=== PATIENT | female | born 1990 | race Caucasian/White ===

== ENCOUNTER 2020-10-27 22:36 | Inpatient (IN) | payer SELFPAY ==
--- NOTE | ~2020-10-27 | US_ITS ---
EXAMINATION: US OB <=14 wk fetus w TV DATE: 10/28/2020 01:36 INDICATION: Bleeding with clots and cramping during first trimester TECHNIQUE: Real-time pelvic transabdominal and transvaginal ultrasound was performed. COMPARISON: None FINDINGS: The uterus measures 9.9 x 6.9 x 6.2 cm. An irregular shaped gestational sac is present in the lower uterine segment/endocervical canal. A yolk sac is identified. No definite pole is sangita ntified. The right ovary measures 3.7 x 2.7 x 1.6 cm. The left ovary measures 2.2 x 1.7 x 2.0 cm. The re is normal vascular flow in the ovaries. There is no free fluid in the pelvis. IMPRESSION: 1. Findings consistent with in progress. These findings and recommendations were communicate d to the ER by the [facility]iologist. Patient has completed surgery at the time of interpretation. Reviewed, dictated and finalized at location A. CTION PREVENTIONIST IMPRESSION: 1. Findings consistent with in progress. These findings and recommenda tions were communicated to the ER by the [facility]iologist. Patient has compl eted surgery at the time of interpretation.
[2020-10-27 22:40] VITALS: BP 100/53; PULSE 86; RESP 18; TEMP 37.1; O2SAT 100
--- NOTE | 2020-10-27 22:46 | ED.FEMALEGU ---
HPI - Female Genitourinary General Chief complaint: Vaginal Bleeding Stated complaint: vaginal bleeding, on menses Time Seen by Provider: 10/27/20 22:45 Source: patient and EMS Mode of arrival: EMS Limitations: no limitations History of Present Illness HPI Narrative: Patient is a 30-year-old female, , last in 2018 who presents for evaluation of heavy vaginal bleeding. Patient states she was due to start her period today, had some normal spotting this morning but then this evening over the past hour developed very heavy vaginal bleeding soaking through one tampon in over an hour and then soaking herself and bright red blood. Due to the amount of blood, patient called EMS and was noted to be slightly hypotensive at the time of their arrival. She is denying any pain. Patient denies history of heavy menses in the past. She is not on any anticoagulation, no history of thyroid disorders, she does report feeling slightly lightheaded and dizzy. Patient denies any trauma or recent sexual intercourse. She denies previous vaginal discharge or bleeding. Patient blood type is O- based on chart review. She states she does not believe she is . Related Data Allergies Allergy/AdvReac Type Severity Reaction Status Date / Time No Known Drug Allergies Allergy Unknown Unknown Verified 08/11/19 14:31 Review of Systems Review of Systems: Narrative: CONSTITUTIONAL: Denies fever, chills, or sweats. EYES: Denies visual changes, redness, or discharge. ENT: Denies rhinorrhea, congestion, sore throat, or otalgia. CARDIOVASCULAR: Denies chest pain, palpitations, or edema. RESPIRATORY: Denies cough or dyspnea. GASTROINTESTINAL: Denies abdominal pain, nausea, vomiting, or diarrhea. GENITOURINARY: Denies dysuria or hematuria. Reports heavy vaginal bleeding. SKIN: Denies rash or itching. MUSCULOSKELETAL: Denies back pain, joint pain, or myalgia. NEUROLOGIC: Denies headache, numbness, or weakness. [facility] Past Medical History Medical History (Updated 10/28/20 @ 01:59 by Miryam Betancourt MD) No pertinent past medical history Surgical History Surgical History (Updated 10/27/20 @ 23:04 by Miryam Betancourt MD) No pertinent past surgical history Social History Social History (Updated 10/27/20 @ 23:04 by Miryam Betancourt MD) Smoking status: Current every day smoker Tobacco type: cigarettes Alcohol intake: never Substance use: never Living arrangements: with family Gender identity (if verbalized by the patient): Female Exam Narrative: Exam Narrative: GENERAL: Awake, alert, conversant HEAD: Normocephalic, atraumatic. EYES: PERRLA and EOMI. ENT: Nares clear, no rhinorrhea or epistaxis. Mucous membranes moist. NECK: Supple. CHEST: No respiratory distress, breathing even and non labored HEART: Regular rate, sinus rhythm ABDOMEN:Non distended, non tender : Cervix is dilated to 4 cm. There is large blood clot present. No parts identified. Brisk bleeding approximately 20 mL evaluated from the internal vaginal canal. There appears to be placental tissue present. EXTREMITIES: Normal range of motion. No edema. SKIN: Warm, dry, no rash. NEURO:No focal deficits. Alert and oriented x3 Course Vital Signs Vital signs: Vital Signs Temperature 37.1 C 10/27/20 22:40 Pulse Rate 86 10/27/20 22:40 Respiratory Rate 18 10/27/20 22:40 Blood Pressure 100/53 L 10/27/20 22:40 Pulse Oximetry 100 10/27/20 22:40 Temperature 37.1 C 10/27/20 22:40 Pulse Rate 84 10/28/20 00:01 Respiratory Rate 17 10/28/20 00:01 Blood Pressure 98/82 L 10/28/20 00:47 Pulse Oximetry 100 10/28/20 00:47 MDM - Female Genitourinary MDM Narrative Medical decision making narrative: Patient is a 30-year-old who presented for evaluation of vaginal bleeding. At the time of assessment, ABCs are intact, patient is borderline hypotensive. No tachycardia. On exam, there is concern that the patient is with p
[2020-10-27 23:17] LABS: Basophils Percent Auto 0.4 % (0.2-1.2); Eosinophils Absolute Auto 0.2 K/mm3 (0-0.3); Hematocrit 32.9 % (37.0-47.0); Hemoglobin 11.1 g/dL (12.0-15.0); Immature Granulocyte Absolute 0.06 K/mm3 (0.00-0.031); Immature Granulocyte Percent A 0.6 % (0-0.5); Lymphocytes Absolute Auto 1.85 K/mm3 (0.9-3.2); Lymphocytes Percent Auto 18.7 % (18.3-44.2); Mean Corpuscular HGB Conc 33.7 g/dl (32-36); Mean Corpuscular Hemoglobin 32.1 pg (26-34); Mean Corpuscular Volume 95.1 fl (80-100); Mean Platelet Volume 9.5 fl (7.4-10.4); Monocytes Absolute Auto 0.6 K/mm3 (0.1-0.6); Monocytes Percent Auto 6.4 % (2.6-8.5); Neutrophils Absolute Auto 7.1 K/mm3 (1.3-6.7); Neutrophils Percent Auto 71.9 % (45.5-73.1); Platelet Count Result 214 k/mm3 (150-375); Red Blood Count 3.46 M/mm3 (4.2-5.4); White Blood Count 9.9 K/mm3 (4.5-10.0)
[2020-10-27] MEDS: SODIUM CHLORIDE 0.9% IV 1,000 ML 999 ML IV CONT (23:18)
[2020-10-27] MEDS: TRANEXAMIC ACID 1,000 MG/10 ML AMPUL 1000 MG IV PUSH (23:18)
[2020-10-27 23:30] LABS: Alanine Aminotransferase 14 U/L (4-35); Albumin Level 3.2 g/dL (3.5-5.1); Alkaline Phosphatase 48 U/L (38-126); Anion Gap 2 mmol/L (8-16); Aspartate Amino Transferase 17 U/L (14-36); Bilirubin,Total 0.2 mg/dL (0.2-1.3); Blood Urea Nitrogen 15 mg/dL (7-17); Calcium 8.7 mg/dL (8.4-10.2); Carbon Dioxide 28 mmol/L (22-30); Chloride 105 mmol/L (98-107); Estimated CRCL calculation 132 ml/min; Estimated Glomerular Filt Rate > 60; Glucose 76 mg/dL (65-105); Potassium 3.8 mmol/L (3.4-5.0); Sodium 135 mmol/L (137-145)
[2020-10-27 23:40] LABS: Prothrombin Time 13.8 Seconds (11.1-14.7)
[2020-10-28] VITALS (109 sets, daily range): BP systolic 69–108; BP diastolic 31–82; PULSE 59–109; RESP 12–20; TEMP 36.2–36.6; O2SAT 94–100
[2020-10-28 00:06] LABS: Add Urine Microscopic? YES; Appearance Urine Clear (Clear); Bilirubin Urine Negative (Negative); Blood Urine Negative (Negative); Color Urine Yellow (Yellow); Glucose Urine UA Negative (Negative); Ketones Urine Negative (Negative); Leukocyte Esterase Ur Negative LEU/UL (Negative); Mucus Urine Moderate /lpf; Nitrate Urine Negative (Negative); Protein Urine 2+ mg/dL (Negative); Specific Grav Ur 1.024 (1.001-1.035); Squamous Epithelial Cell Urine Few /hpf (Few); Urobilinogen Urine Negative mg/dL (<2.0)
[2020-10-28] MEDS: RHO(D) IMMUNE GLOBULIN 300 MCG SYRINGE IM (01:45)
[2020-10-28 02:11] LABS: Basophils Percent Auto 0.3 % (0.2-1.2); Eosinophils Absolute Auto 0.1 K/mm3 (0-0.3); Eosinophils Percent Auto 0.9 % (0-4.4); Hematocrit 28.2 % (37.0-47.0); Hemoglobin 9.6 g/dL (12.0-15.0); Immature Granulocyte Absolute 0.08 K/mm3 (0.00-0.031); Immature Granulocyte Percent A 0.7 % (0-0.5); Lymphocytes Absolute Auto 1.92 K/mm3 (0.9-3.2); Lymphocytes Percent Auto 16.4 % (18.3-44.2); Mean Corpuscular Hemoglobin 31.9 pg (26-34); Mean Corpuscular Volume 93.7 fl (80-100); Mean Platelet Volume 9.8 fl (7.4-10.4); Monocytes Absolute Auto 0.5 K/mm3 (0.1-0.6); Monocytes Percent Auto 4.5 % (2.6-8.5); Neutrophils Percent Auto 77.2 % (45.5-73.1); Platelet Count Result 221 k/mm3 (150-375); Red Blood Count 3.01 M/mm3 (4.2-5.4); Red Cell Distribution Width 12.1 % (11.5-14.5); White Blood Count 11.7 K/mm3 (4.5-10.0)
[2020-10-28] MEDS: LORazepam INJ (*CRX) 2 MG/ML VIAL 0.5 MG IV PUSH (02:33)
[2020-10-28] MEDS: miSOPROStol 100 MCG TABLET 800 MCG PO (03:36)
[2020-10-28] MEDS: SODIUM CHLORIDE 0.9% IV 1,000 ML 125 ML IV CONT (03:39)
--- NOTE | 2020-10-28 03:45 | PC.NURSE ---
[id number] Called to verify orders for cytotec PO. stated to give cytotec and gave orders for morphine PRN for pain. stated to call her if bleeding increases.
[2020-10-28] MEDS: ONDANSETRON INJ 4 MG/2 ML VIAL IV PUSH (04:04)
[2020-10-28 06:10] LABS: Hematocrit 25.1 % (37.0-47.0); Hemoglobin 8.4 g/dL (12.0-15.0); Mean Corpuscular HGB Conc 33.5 g/dl (32-36); Mean Corpuscular Hemoglobin 31.2 pg (26-34); Mean Corpuscular Volume 93.3 fl (80-100); Mean Platelet Volume 9.8 fl (7.4-10.4); Platelet Count Result 219 k/mm3 (150-375); Red Blood Count 2.69 M/mm3 (4.2-5.4); White Blood Count 8.6 K/mm3 (4.5-10.0)
--- NOTE | 2020-10-28 06:32 | PC.NURSE ---
[id number] Avitia to tell her pt was assisted to bathroom and started to feel dizzy/lightheaded. pt was helped back to bed. Made MD aware of recent vitals. MD stated orders for type and screen and CBC. MD coming in at this time to prepare for procedure.
--- NOTE | 2020-10-28 06:37 | PM.IMHP ---
H&P: HPI History of Present Illness Date/Time: 10/28/20 06:37 Chief Complaint: vaginal bleeding Narrative: Francesca Galarza is a 30 year old female with unknown prior to ton who presented to the ED with heavy bleeding. Found to be preg, hcg 1600, US showed POC in [facility]. Hgb dropped from 11.1 to 9.6 and just now to 8.4. She is feeling tired. Had one episode of dizziness a couple hours ago on ambulating to bathroom. Review of Systems Review of Systems: All systems reviewed & are unremarkable except as noted in HPI and below (HPI and below) Constitutional: Constitutional: Reports fatigue Genitourinary: Genitourinary: Reports pelvic pain PMFSH Past Medical History Medical History No pertinent past medical history Surgical History Surgical History No pertinent past surgical history Social History Social History Smoking status: Current every day smoker Tobacco type: cigarettes Alcohol intake: never Substance use: never Living arrangements: with family Gender identity (if verbalized by the patient): Female Meds Home Medications and Allergies Allergies Allergy/AdvReac Type Severity Reaction Status Date / Time No Known Drug Allergies Allergy Unknown Unknown Verified 08/11/19 14:31 Vital Signs Vital Signs - 24 hr 10/27/20 22:40 10/28/20 00:01 10/28/20 00:16 Temperature 98.7 F Pulse Rate 86 84 Respiratory Rate 18 17 Blood Pressure 100/53 L 99/70 L 101/68 Pulse Oximetry 100 100 100 10/28/20 00:30 10/28/20 00:31 10/28/20 00:45 Temperature Pulse Rate Respiratory Rate Blood Pressure 105/55 L Pulse Oximetry 100 100 100 10/28/20 00:47 10/28/20 03:09 10/28/20 03:29 Temperature Pulse Rate 80 79 Respiratory Rate 16 Blood Pressure 98/82 L 94/57 L 92/31 L Pulse Oximetry 100 100 100 10/28/20 03:31 10/28/20 03:34 10/28/20 03:39 Temperature Pulse Rate 73 Respiratory Rate Blood Pressure 87/40 L Pulse Oximetry 100 100 10/28/20 03:44 10/28/20 03:46 10/28/20 03:49 Temperature Pulse Rate 85 Respiratory Rate Blood Pressure 89/39 L Pulse Oximetry 100 100 10/28/20 03:54 10/28/20 03:59 10/28/20 04:01 Temperature Pulse Rate 82 Respiratory Rate Blood Pressure 92/43 L Pulse Oximetry 100 100 10/28/20 04:03 10/28/20 04:04 10/28/20 04:09 Temperature 97.4 F L Pulse Rate Respiratory Rate 16 Blood Pressure Pulse Oximetry 100 100 10/28/20 04:14 10/28/20 04:16 10/28/20 04:19 Temperature Pulse Rate 79 Respiratory Rate Blood Pressure 69/43 L Pulse Oximetry 98 98 10/28/20 04:20 10/28/20 04:24 10/28/20 04:29 Temperature Pulse Rate 77 Respiratory Rate Blood Pressure 86/46 L Pulse Oximetry 100 100 10/28/20 04:31 10/28/20 04:34 10/28/20 04:39 Temperature Pulse Rate 75 Respiratory Rate Blood Pressure 101/47 L Pulse Oximetry 100 100 10/28/20 04:44 10/28/20 04:49 10/28/20 04:54 Temperature Pulse Rate Respiratory Rate Blood Pressure Pulse Oximetry 100 100 100 10/28/20 04:59 10/28/20 05:01 10/28/20 05:02 Temperature Pulse Rate 79 Respiratory Rate Blood Pressure 95/63 L Pulse Oximetry 100 100 10/28/20 05:07 10/28/20 05:12 10/28/20 05:17 Temperature Pulse Rate Respiratory Rate Blood Pressure Pulse Oximetry 100 100 100 10/28/20 05:33 10/28/20 05:38 10/28/20 05:43 Temperature Pulse Rate 74 Respiratory Rate Blood Pressure 93/36 L Pulse Oximetry 99 100 100 10/28/20 05:45 10/28/20 05:48 10/28/20 05:53 Temperature Pulse Rate 77 Respiratory Rate Blood Pressure 93/34 L Pulse Oximetry 100 100 10/28/20 05:58 10/28/20 06:01 10/28/20 06:03 Temperature Pulse Rate 81 Respiratory Rate Blood Pressur
--- NOTE | 2020-10-28 06:39 | WPDANESEPPF ---
Anes - Initial Pre Proc Eval Procedure: Operation Date: 10/28/20 07:00 Proposed Procedures p SUCTION DILITATION AND CURRETTAGE - Milena Avitia MD Date/Time: 10/28/20 06:39 Surgeon: Milena Avitia MD Pre Op Diagnosis: Vaginal bleeding, anemia, miscarriage Patient Data Age: 30 Gender: F Height: 1.65 m Weight: 95.2 kg Last Vital Signs Temp 36.3 C L 10/28/20 04:03 Pulse 70 10/28/20 06:16 Resp 16 10/28/20 04:03 BP 95/50 L 10/28/20 06:16 Pulse Ox 100 10/28/20 06:13 Allergies Allergy/AdvReac Type Severity Reaction Status Date / Time No Known Drug Allergies Allergy Unknown Unknown Verified 08/11/19 14:31 Laboratory Tests 10/27/20 10/27/20 10/27/20 23:10 23:10 23:10 WBC 9.9 K/mm3 K/mm3 (4.5-10.0) RBC 3.46 M/mm3 L M/mm3 (4.2-5.4) Hgb 11.1 g/dL L g/dL (12.0-15.0) Hct 32.9 % L % (37.0-47.0) MCV 95.1 fl fl (80-100) MCH 32.1 pg pg (26-34) MCHC 33.7 g/dl g/dl (32-36) RDW 12.0 % % (11.5-14.5) Plt Count 214 k/mm3 k/mm3 (150-375) MPV 9.5 fl fl (7.4-10.4) Immature Gran % (Auto) 0.6 % H % (0-0.5) Neut % (Auto) 71.9 % % (45.5-73.1) Lymph % (Auto) 18.7 % % (18.3-44.2) [place] % (Auto) 6.4 % % (2.6-8.5) Eos % (Auto) 2.0 % % (0-4.4) Baso % (Auto) 0.4 % % (0.2-1.2) Lymph # (Auto) 1.85 K/mm3 K/mm3 (0.9-3.2) [place] # (Auto) 0.6 K/mm3 K/mm3 (0.1-0.6) Eos # (Auto) 0.2 K/mm3 K/mm3 (0-0.3) Baso # (Auto) 0.0 K/mm3 K/mm3 (0.0-0.1) Abs Immat Gran (auto) 0.06 K/mm3 H K/mm3 (0.00-0.031) Absolute Neuts (auto) 7.1 K/mm3 H K/mm3 (1.3-6.7) Absolute Nucleated RBC 0.0 K/mm3 K/mm3 (0.0-0.012) Nucleated RBC % 0.0 % % (0.0-0.2) PT 13.8 Seconds Seconds (11.1-14.7) INR 1.0 APTT 28.0 SECONDS SECONDS (22.3-36.8) Sodium 135 mmol/L L mmol/L (137-145) Potassium 3.8 mmol/L mmol/L (3.4-5.0) Chloride 105 mmol/L mmol/L (98-107) Carbon Dioxide 28 mmol/L mmol/L (22-30) Anion Gap 2 mmol/L L mmol/L (8-16) BUN 15 mg/dL mg/dL (7-17) Creatinine 0.60 mg/dL L mg/dL (0.7-1.0) Estim Creat Clear Calc 132 ml/min ml/min Estimated GFR > 60 (59 - ) Glucose 76 mg/dL mg/dL (65-105) Calcium 8.7 mg/dL mg/dL (8.4-10.2) Total Bilirubin 0.2 mg/dL mg/dL (0.2-1.3) AST 17 U/L U/L (14-36) ALT 14 U/L U/L (4-35) Alkaline Phosphatase 48 U/L U/L (38-126) Total Protein 6.0 g/dL L g/dL (6.3-8.2) Albumin 3.2 g/dL L g/dL (3.5-5.1) TSH 3.010 uIU/mL uIU/mL (0.465-4.680) Beta HCG, Quant 1612.40 mIU/ML mIU/ML Urine Color Urine Appearance Urine pH Ur Specific [place] Urine Protein Urine Glucose (UA) Urine Ketones Ur Blood (Man) Urine Nitrate Urine Bilirubin Urine Urobilinogen Leukocyte Esterase Rfl Urine RBC Urine WBC Ur Squamous Epith Cells Hyaline Casts Urine Mucus Blood Type Antibody Screen Screen Baby's Blood Type Baby's KAYLYNN Doses of RhIg Required 10/27/20 10/27/20 10/28/20 23:10 23:54 02:06 WBC 11.7 K/mm3 H K/mm3 (4.5-10.0) RBC 3.01 M/mm3 L M/mm3 (4.2-5.4) Hgb 9.6 g/dL L g/dL (12.0-15.0) Hct 28.2 % L % (37.0-47.0) MCV 93.7 fl fl (80-100) MCH 31.9 pg pg (26-34) MCHC 34.0 g/dl g/dl (32-36) RDW 12.1 % % (11.5-14.5) Plt Count 221 k/mm3 k/mm3 (150-375)
[2020-10-28] MEDS: LACTATED RINGERS 1,000 ML 30 ML IV CONT (06:45)
--- NOTE | 2020-10-28 06:46 | PM.PROC ---
Procedure Note - Detailed Date of procedure: 10/28/20 Pre-op diagnosis: Vaginal bleeding, anemia, miscarriage Post-op diagnosis: same Procedure performed: suction D and C Description of procedure: The patient was taken to the operating room where she received MAC anesthesia. She was placed in dorsal lithotomy position in [facility]. Exam under anesthesia revealed anteverted uterus about 8 week size. She was prepped and draped in normal fashion. Her bladder was emptied with a red rubber catheter. A speculum was placed and the cervix was grasped with a single tooth tenaculum. The cervix was sequentially dilated to accommodate a #7 curved suction curette. Several passes were made until 3 passes obtained no further tissue. The specimen was sent to pathology. The tenaculum was removed and the cervix made hemostatic with pressure. THe speculum was removed. The patient was awakened from anesthesia and taken to the recovery room in good condition. Anesthesia: MAC Surgeon: Milena Avitia MD Drains: No Packing: No Pathology: yes Complications: No immediate complications Condition: stable Disposition: floor Findings: copoius POC obtained. bleeding minimal at end of procedure.
--- NOTE | 2020-10-28 07:02 | WPDHPUPDATE1 ---
History and Physical Update Update Date/Time: 10/28/20 07:02 History and Physical has been reviewed, including an updated exam of the patient. There are NO changes in the patient's condition since the H and P was done less than 30 min ago. Risks, benefits, and alternatives have been discussed and questions answered. Patient agrees to proceed with procedure.
[2020-10-28] MEDS: BUPIVACAINE/EPINEPHRINE 0.25% 10 ML VIAL INFILTRATE (07:17)
--- NOTE | 2020-10-28 08:32 | PC.NURSE ---
Patient arrived to OB unit from PACU. Patient able to ambulate to bed. Patient denies pain. Scant bleeding noted on pad. VSS stable upon arrival.
[2020-10-28] MEDS: LACTATED RINGERS 1,000 ML 100 ML IV CONT (08:48)
--- NOTE | 2020-10-28 08:57 | PC.NURSE ---
Patient tolerating clear liquid diet without complaints of nausea or emesis. Patient resting comfortable, dozing.
[2020-10-28 12:15] LABS: Hemoglobin 7.9 g/dL (12.0-15.0); Mean Corpuscular HGB Conc 34.3 g/dl (32-36); Mean Corpuscular Hemoglobin 32.4 pg (26-34); Mean Corpuscular Volume 94.3 fl (80-100); Platelet Count Result 190 k/mm3 (150-375); Red Blood Count 2.44 M/mm3 (4.2-5.4); Red Cell Distribution Width 12.2 % (11.5-14.5); White Blood Count 7.9 K/mm3 (4.5-10.0)
--- NOTE | 2020-10-28 13:40 | PC.NURSE ---
Discharge instructions reviewed with patient. Patient instructed to call office to schedule follow-up appointment with Dr. Zendejas office for 1 week following discharge. Patient instructed to take iron.
--- NOTE | 2020-11-02 07:31 | PM.DS ---
DS: Admitting Diagnosis Admitting Diagnosis Admitting Diagnosis: incomplete ab DS: Discharge Diagnosis Discharge Diagnosis (1) Incomplete : Code(s): O03.4 - Incomplete spontaneous without complication Status: Acute (2) Anemia due to acute blood loss: Code(s): D62 - Acute posthemorrhagic anemia Status: Acute DS: Summary Hospital Course Reason for hospitalization: incomplete miscarriage with heavy bleeding requiring D and C Hospital Course: Pt was admitted for observation. Hgb dropped significantly, she had a D and C which resolved all bleeding. Hgb at discharge was 7.9 but patient was asymptomatic. Status at Discharge Functional status at discharge: independent ambulation Time Spent with Patient Time attestation: Total time spent providing and/or coordinating discharge services: Exam Const: General: no acute distress Limitations: no limitations Resp: Auscultation: clear to auscultation bilaterally Cardio: Rate: regular rate Rhythm: regular rhythm GI: GI Palp: Yes Soft to palpation Auscultation: normal bowel sounds DS: Data Data Completed and Pending Completed studies during hospitalization: Pending at discharge 10/28/20 07:12 Surgical [PTH] Routine Discharge Plan Discharge Attending physician on discharge: Milena Avitia Consulting providers: Aleta Peacock ; Clemente Mo ; Anirudh Das ; Miryam Betancourt Discharging Clinician: Milena Avitia Anticipated Discharge Date/Time: 10/28/20 14:00 Patient Disposition: Home, Self-Care Activity: may shower and as tolerated Diet: regular Discharge Instructions: Follow-Up: Call your Provider's office for an appointment to be seen in: 1 Week BLEEDING: * Each individual will experience vaginal bleeding, but it will vary with each situation and individual woman. * Vaginal bleeding will go thru cycles-from bright red, to pinkish to a white, creamy discharge. This is considered normal. You may also experience a brownish discharge which is also normal. DIET AND NUTRITION: * Eat at least 3 regular, well-balanced meals per day: include all 4 food groups daily. * You may prefer 6 small meals. * Drink 6-8 glasses of water or non-caffeinated beverages per day. * Loss of appetite is common with loss. We encourage you to try to eat; this will help with both your physical and emotional health. ACTIVITY: * Rest as much as possible during the day. * Do not exercise or lift anything heavier than 10 pounds (such as laundry or other children.) * Avoid stairs or driving as much as possible, especially if you are taking pain medication. * Do not put anything into the vagina. No douching, tampons, or sexual activity until seen and released by your physician. * Listen to your body, and do not do what is uncomfortable or painful. EMOTIONAL HEALTH: * This is a very difficult and sad time for you and your family, friends, and other children. It may be helpful to refer to the booklets on loss that you received. * It is okay to be sad and to cry. Denial, anger, and guilt are also normal stages that you and your family may go thru during this time. Each person reaches these stages at their own pace. * Keep the lines of communication open between family and friends, and ask for help if needed. NOTIFY PHYSICIAN IF YOU HAVE ANY QUESTIONS OR IF ANY OF THE FOLLOWING SYMPTOMS OCCUR: * If your vaginal bleeding becomes foul smelling. * If your vaginal bleeding becomes more heavy than a period or if your bleeding changes from pink to bright red. However, you may pass an occasional walnut-sized clot once or twice for the first week . * If you experience a sharp, shooting pain in you calves. * If you discover a hard, reddened area on your breast or if you experience flu-like symptoms. * If you develop a temperature of 100.4 or greater. * If you are unable to eat or sleep and take care of acti
== END 2020-10-28 14:32 | disposition home or self-care (01) | DRG 544 ==
LOC: ANHED 10-28 01:59 → ANHLDR 10-28 03:20
PROVIDERS: Admitting Provider Obstetrics & Gynecology; Emergency Provider Emergency Medicine; PCP Obstetrics & Gynecology; Visit Provider Obstetrics & Gynecology
PROC: 10D17ZZ Extraction of Products of Conception, Retained, Via Natural or Artificial Opening (ICD-10-PCS; principal; 2020-10-28 07:00)
DX: O03.1 Delayed or excessive hemorrhage following incomplete spontaneous abortion (principal)
CPT/HCPCS: 36415; 51701; 76801; 76817; 80053; 81001; 81025; 84443; 84702; 85025; 85027; 85461; 85610; 85730; 88305; 90384; 99285; A9270; J0131; J2060; J2250; J2405; J2704; J2790; J3010; J7030; J7120

== ENCOUNTER 2022-02-08 19:57 | Emergency (ER) | payer OTHER, SELFPAY ==
--- NOTE | ~2022-02-08 | XR_ITS ---
EXAMINATION: XR chest 2V Exam Date/Time: 02/08/2022 20:30 CDT CLINICAL HISTORY: chest pain STARTED IN ABD INTO LT CHEST THIS MORNING @ 10AM Comparison: None available RESULT: Lines, tubes, and devices: None. Lungs and pleura: Left lower lobe solitary pulmonary nodule, requires no follow-up in patient of thi s age. Otherwise clear. Cardiomediastinal silhouette: Normal cardiomediastinal silhouette. Other: No acute osseous or upper abdominal finding. IMPRESSION: No acute cardiopulmonary process. Reviewed, dictated and finalized at location K.
[2022-02-08 20:25] VITALS: BP 113/70; PULSE 77; RESP 16; TEMP 36.7; O2SAT 100
--- NOTE | 2022-02-08 20:29 | ECG_ITS ---
Measurements Intervals [place] Rate: 64 P: 36 AK: 167 QRS: 73 QRSD: 101 T: 46 QT: 366 QTc: 379 Interpretive Statements SINUS RHYTHM NO PREVIOUS ECG AVAILABLE FOR COMPARISON Electronically Signed On 02-09-2022 14:19:44 CDT by Jesi Haas M.D.
--- NOTE | 2022-02-08 20:33 | ED.CHESTPAIN ---
HPI - Chest Pain General Chief Complaint: Chest Pain Stated Complaint: epigastric pain Time Seen by Provider: 02/08/22 20:32 History of Present Illness HPI narrative: 31-year-old female presents emergency room with acute onset of a epigastric pain that radiates up into her chest. Patient describes pain as burning and constant. Patient states that she took a Gas-X with no relief of symptoms this morning. Patient denies nausea, vomiting, diarrhea, constipation. Denies abdominal pain. Patient denies alcohol use. Related Data Allergies Allergy/AdvReac Type Severity Reaction Status Date / Time No Known Drug Allergies Allergy Unknown Unknown Verified 10/28/20 07:55 Review of Systems Review of Systems: CONSTITUTIONAL: Denies fever, chills, or sweats. EYES: Denies visual changes, redness, or discharge. ENT: Denies rhinorrhea, congestion, sore throat, or otalgia. CARDIOVASCULAR: Denies chest pain, palpitations, or edema. RESPIRATORY: Denies cough or dyspnea. GASTROINTESTINAL: Reports epigastric burning GENITOURINARY: Denies dysuria or hematuria. SKIN: Denies rash or itching. MUSCULOSKELETAL: Denies back pain, joint pain, or myalgia. NEUROLOGIC: Denies headache, numbness, dizziness, or weakness. PSYCHIATRIC: Denies anxiety or depression. [facility] Past Medical History Medical History No pertinent past medical history Surgical History Surgical History No pertinent past surgical history Social History Social History Smoking status: Current every day smoker Tobacco type: cigarettes Alcohol intake: never Substance use: never Gender identity (if verbalized by the patient): Female Exam Narrative: GENERAL: Well-appearing, well-nourished, and in no acute distress. HEAD: Normocephalic, atraumatic. EYES: PERRLA and EOMI. CHEST: Clear to auscultation. No respiratory distress. No wheezes rales or rhonchi HEART: Regular rate and rhythm. No murmur heard. Normal peripheral pulses. ABDOMEN: Soft, epigastric tenderness, nondistended, normal active bowel sounds. EXTREMITIES: Normal range of motion. No edema. SKIN: Warm, dry, no rash. NEURO: No focal deficits. Alert and oriented x3. PSYCH: Normal mood and affect. Course Vital Signs Vital signs: Vital Signs Temperature 36.7 C 02/08/22 20:25 Pulse Rate 77 02/08/22 20:25 Respiratory Rate 16 02/08/22 20:25 Blood Pressure 113/70 02/08/22 20:25 Pulse Oximetry 100 02/08/22 20:25 Temperature 36.7 C 02/08/22 20:25 Pulse Rate 63 02/08/22 21:27 Respiratory Rate 12 02/08/22 21:27 Blood Pressure 118/81 02/08/22 21:26 Pulse Oximetry 99 02/08/22 21:27 MDM - Chest Pain MDM Narrative Medical decision making narrative: 31-year-old female present to the emergency room with complaints of epigastric burning that radiated into her midsternal area. CMP and CBC were unremarkable. Troponin was negative. EKG was normal sinus rhythm no ectopy. Chest x-ray showed no acute cardiopulmonary process. Patient reported significant relief following the GI cocktail. Patient likely experiencing acid reflux. Lab Data Attestation: I reviewed the patient's lab results. Result diagrams: 02/08/22 20:52 02/08/22 20:52 Labs: Lab Results 02/08/22 02/08/22 Range/Units 20:52 20:52 WBC 5.3 (4.5-10.0) K/mm3 RBC 3.84 L (4.2-5.4) M/mm3 Hgb 11.9 L D (12.0-15.0) g/dL Hct 34.8 L (37.0-47.0) % MCV 90.6 (80-100) fl MCH 31.0 (26-34) pg MCHC 34.2 (32-36) g/dl RDW 12.2 (11.5-14.5) % Plt Count 209 (150-375) k/mm3 MPV 9.5 (7.4-10.4) fl Immature Gran % (Auto) 0.2 (0-0.5) % Neut % (Auto) 61.0 (45.5-73.1) % Lymph % (Auto) 28.7 (18.3-44.2) % [place] % (Auto) 7.8 (2.6-8.5) % Eos % (Auto) 1.9 (0-4.4) % Baso % (Auto) 0.4 (0.2-1.2)
[2022-02-08] MEDS: BELLADONNA ALK/PHENOB ELIX 10 ML, MAG HYDROX/ALUMINUM HYD/SIMETH 30 ML, LIDOCAINE HCL 2... PO (20:57)
[2022-02-08 21:05] LABS: Basophils Percent Auto 0.4 % (0.2-1.2); Eosinophils Absolute Auto 0.1 K/mm3 (0-0.3); Eosinophils Percent Auto 1.9 % (0-4.4); Hematocrit 34.8 % (37.0-47.0); Hemoglobin 11.9 g/dL (12.0-15.0); Immature Granulocyte Absolute 0.01 K/mm3 (0.00-0.031); Immature Granulocyte Percent A 0.2 % (0-0.5); Lymphocytes Absolute Auto 1.51 K/mm3 (0.9-3.2); Lymphocytes Percent Auto 28.7 % (18.3-44.2); Mean Corpuscular HGB Conc 34.2 g/dl (32-36); Mean Corpuscular Volume 90.6 fl (80-100); Mean Platelet Volume 9.5 fl (7.4-10.4); Monocytes Absolute Auto 0.4 K/mm3 (0.1-0.6); Monocytes Percent Auto 7.8 % (2.6-8.5); Neutrophils Absolute Auto 3.2 K/mm3 (1.3-6.7); Platelet Count Result 209 k/mm3 (150-375); Red Blood Count 3.84 M/mm3 (4.2-5.4); Red Cell Distribution Width 12.2 % (11.5-14.5); White Blood Count 5.3 K/mm3 (4.5-10.0)
[2022-02-08 21:17] LABS: Alanine Aminotransferase 16 U/L (4-35); Albumin Level 3.9 g/dL (3.5-5.1); Alkaline Phosphatase 54 U/L (38-126); Anion Gap 6 mmol/L (8-16); Aspartate Amino Transferase 25 U/L (14-36); Bilirubin,Total 0.5 mg/dL (0.2-1.3); Blood Urea Nitrogen 11 mg/dL (7-17); Calcium 8.9 mg/dL (8.4-10.2); Carbon Dioxide 26 mmol/L (22-30); Chloride 104 mmol/L (98-107); Estimated CRCL calculation 107 ml/min; Estimated Glomerular Filt Rate > 60; Glucose 86 mg/dL (65-110); Lipase 33 U/L (23-300); Potassium 3.6 mmol/L (3.4-5.0); Sodium 136 mmol/L (137-145)
[2022-02-08 21:26] VITALS: BP 118/81; PULSE 62; RESP 14; O2SAT 100
[2022-02-08 21:27] VITALS: PULSE 63; RESP 12; O2SAT 98; O2SAT 99
[2022-02-08 21:28] LABS: Troponin I < 0.012 ng/mL (0.000-0.034)
[2022-02-08 22:33] VITALS: BP 120/81; PULSE 74; RESP 16; O2SAT 100
== END 2022-02-08 22:35 | disposition home or self-care (01) ==
LOC: ANHED 22:26
PROVIDERS: Emergency Medicine; Emergency Provider Nurse Practitioner Family
DX: K21.9 Gastro-esophageal reflux disease without esophagitis (principal); R07.9 Chest pain, unspecified; F17.210 Nicotine dependence, cigarettes, uncomplicated
CPT/HCPCS: 36415; 71046; 80053; 83690; 84484; 85025; 93005; 99284; A9270

== ENCOUNTER 2023-10-16 16:57 | Emergency (ER) | payer OTHER, SELFPAY ==
[2023-10-16 16:57] VITALS: BP 105/67; PULSE 80; RESP 20; TEMP 36.7; O2SAT 98
--- NOTE | 2023-10-16 17:31 | ED.GENADULT ---
HPI - General Adult General Chief complaint: Abdominal Pain Stated complaint: 9 weeks ; cramping Time Seen by Provider: 10/16/23 17:14 History of Present Illness HPI narrative: 33yo woman 9 weeks presents with acute suprapubic abdominal pain, radiating to the right quadrant. She has already had an ultrasound recently confirming baby is alive and intrauterine, but pain started today. No bleeding, discharge, dysuria, or fever. No nausea or chills. Related Data Home Medications Medication Instructions Recorded Confirmed No Home Medications 10/16/23 10/16/23 Allergies Allergy/AdvReac Type Severity Reaction Status Date / Time No Known Drug Allergies Allergy Unknown Unknown Verified 10/16/23 17:05 Review of Systems Review of Systems: All systems reviewed & are unremarkable except as noted in HPI and below Constitutional: Constitutional: Denies chills and Denies fever(s) ENT: Denies dysphagia Cardiovascular: Cardiovascular: Denies chest pain Respiratory: Respiratory: Denies dyspnea Gastrointestinal: Gastrointestinal: Reports abdominal pain and Denies diarrhea PMFSH Past Medical History Medical History No pertinent past medical history Surgical History Surgical History No pertinent past surgical history Social History Social History Smoking status: Current every day smoker Tobacco type: cigarettes Alcohol intake: never Substance use: never Living arrangements: with family Gender identity (if verbalized by the patient): Female Exam Const: General: healthy appearing and no acute distress Nutritional Appearance: well nourished Eyes: Conjunctivae: conjunctivae normal Resp: Effort & Inspection: normal respiratory effort Cardio: Rate: regular rate Rhythm: regular rhythm GI: Inspection: non-distended GI Palp: Yes Soft to palpation and Yes Tenderness to palpation present (GI) Other: suprapubic tenderness Skin: General skin exam: normal color, no jaundice and no pallor Extrem: General: no clubbing, cyanosis or edema Course Vital Signs Vital signs: Vital Signs Temperature 36.7 C 10/16/23 16:57 Pulse Rate 80 10/16/23 16:57 Respiratory Rate 20 10/16/23 16:57 Blood Pressure 105/67 10/16/23 16:57 Pulse Oximetry 98 10/16/23 16:57 Oxygen Delivery Room Air 10/16/23 16:57 Temperature 36.7 C 10/16/23 16:57 Pulse Rate 80 10/16/23 16:57 Respiratory Rate 20 10/16/23 16:57 Blood Pressure 105/67 10/16/23 16:57 Pulse Oximetry 98 10/16/23 16:57 Oxygen Delivery Room Air 10/16/23 16:57 Medical Decision Making MDM Narrative Medical decision making narrative: suprapubic pain in DDx cystitis, round ligament pain, less likely surgical abdomen such as appy given the absence of nausea, chills. POCUS confirms intrauterine live baby with FHR approximately 150 bpm. Vital Signs Vital Signs: Vital Signs Temperature 36.7 C 10/16/23 16:57 Pulse Rate 80 10/16/23 16:57 Respiratory Rate 20 10/16/23 16:57 Blood Pressure 105/67 10/16/23 16:57 Pulse Oximetry 98 10/16/23 16:57 Oxygen Delivery Room Air 10/16/23 16:57 Temperature 36.7 C 10/16/23 16:57 Pulse Rate 80 10/16/23 16:57 Respiratory Rate 20 10/16/23 16:57 Blood Pressure 105/67 10/16/23 16:57 Pulse Oximetry 98 10/16/23 16:57 Oxygen Delivery Room Air 10/16/23 16:57 Discharge Plan Discharge Clinical Impression: Acute suprapubic pain, Renal colic on right side, Normal fetus during in first trimester Patient Disposition: Home, Self-Care Condition: Stable Instructions: Antibiotic Form, Kidney Stones (ED) Additional Instructions: The microscopic blood in your urine may indicate that you have a kidney stone. For pain, take
[2023-10-16] MEDS: ACETAMINOPHEN 500 MG TABLET 1000 MG PO (17:38)
[2023-10-16 17:43] LABS: Basophils Absolute Auto 0.02 K/mm3 (0.00-0.10); Basophils Percent Auto 0.3 % (0.0-1.0); Eosinophils Percent Auto 1.3 % (1.0-6.0); Hematocrit 35.1 % (35.0-49.0); Hemoglobin 12.1 g/dL (12.0-15.0); Immature Granulocyte Absolute 0.03 K/mm3 (0.00-0.00); Immature Granulocyte Percent A 0.4 % (0.0-0.0); Lymphocytes Absolute Auto 1.69 K/mm3 (1.10-4.50); Lymphocytes Percent Auto 22.3 % (18.0-42.0); Mean Corpuscular HGB Conc 34.5 g/dL (32.0-36.0); Mean Corpuscular Hemoglobin 31.8 pg (27.0-31.0); Mean Corpuscular Volume 92.1 fL (78.0-102.0); Mean Platelet Volume 9.6 fl (9.2-11.8); Monocytes Absolute Auto 0.48 K/mm3 (0.10-0.90); Monocytes Percent Auto 6.3 % (2.0-11.0); Neutrophils Absolute Auto 5.3 K/mm3 (1.7-7.2); Neutrophils Percent Auto 69.4 % (50.0-70.0); Platelet Count Result 240 K/mm3 (150-420); Red Blood Count 3.81 M/mm3 (4.20-5.40); Red Cell Distribution Width 11.9 % (11.6-14.4); White Blood Count 7.6 K/mm3 (4.8-10.8)
[2023-10-16 17:55] LABS: Appearance Urine Clear (Clear); Bilirubin Urine Negative (Negative); Color Urine Yellow (Yellow); Glucose Urine UA Negative (Negative); Ketones Urine Trace (Negative); Leukocyte Esterase Ur Negative LEU/UL (Negative); Nitrate Urine Negative (Negative); Protein Urine Trace (Negative); pH Urine 7.5 (5.0-8.0)
[2023-10-16 18:01] LABS: Add Urine Microscopic? YES; Blood Urine Trace-lysed (Negative)
[2023-10-16 18:02] LABS: Amorphous Sediment Urine Moderate; Bacteria Urine Trace /hpf; Mucus Urine Moderate /lpf; Squamous Epithelial Cell Urine Few /hpf (Few); WBC Urine 0-3 /hpf (0-3)
[2023-10-16 18:29] LABS: Alanine Aminotransferase 35 U/L (14-59); Alkaline Phosphatase 47 U/L (46-116); Anion Gap 4 mmol/L (8-16); Aspartate Amino Transferase 15 U/L (15-37); Bilirubin,Total 0.1 mg/dL (0.00-1.00); Blood Urea Nitrogen 7 mg/dL (7-18); Calcium 8.4 mg/dL (8.5-10.1); Carbon Dioxide 28 mmol/L (21-32); Chloride 100 mmol/L (98-108); Estimated Glomerular Filt Rate > 60; Glucose 110 mg/dL (70-99); Osmolality Calculated 273 mOsm/kg (285-295); Potassium 3.6 mmol/L (3.5-5.1); Sodium 132 mmol/L (136-145); Total Protein 6.3 g/dL (6.4-8.2)
== END 2023-10-16 18:49 | disposition home or self-care (01) ==
PROVIDERS: Emergency Provider Emergency Medicine
DX: O26.891 Other specified pregnancy related conditions, first trimester (principal); N23 Unspecified renal colic; O99.332 Smoking (tobacco) complicating pregnancy, second trimester; F17.210 Nicotine dependence, cigarettes, uncomplicated; Z3A.09 9 weeks gestation of pregnancy
CPT/HCPCS: 36415; 80053; 81001; 84702; 85025; 99283

== ENCOUNTER 2023-10-30 16:14 | Emergency (ER) | payer OTHER, SELFPAY ==
[2023-10-30 16:17] VITALS: BP 99/55; PULSE 88; RESP 20; TEMP 36.7; O2SAT 100
[2023-10-30] MEDS: AMOXICILLIN 500 MG CAPSULE PO (16:25)
--- NOTE | 2023-10-30 16:26 | ED.GENADULT ---
HPI - General Adult General Chief complaint: Upper Respiratory Infection Stated complaint: sore throat Time Seen by Provider: 10/30/23 16:16 History of Present Illness HPI narrative: Mahnaz is a previously healthy 33F @ 11 weeks gestation that presented to the ED with a sore throat that started last night as well as generally feeling ill. No dysphagia or dyspnea. Related Data Allergies Allergy/AdvReac Type Severity Reaction Status Date / Time No Known Drug Allergies Allergy Unknown Unknown Verified 10/30/23 16:28 Review of Systems Review of Systems: All systems reviewed & are unremarkable except as noted in HPI and below PMFSH Past Medical History Medical History No pertinent past medical history Surgical History Surgical History No pertinent past surgical history Social History Social History Smoking status: Current every day smoker Tobacco type: cigarettes Alcohol intake: never Substance use: never Living arrangements: with family Gender identity (if verbalized by the patient): Female Exam Const: General: cooperative, healthy appearing, comfortable, no acute distress, well developed, alert, awake and Physically active Orientation/consciousness: oriented to person, oriented to place and oriented to time HENMT: Head: normal to inspection, normocephalic and atraumatic Ears: hearing grossly normal bilaterally and external ears normal Face/Nose/Sinus: Normal external nose present Other: pus pockets in the oropharynx Bilateral sub mandibular and anterior cervical lymphadenopathy Eyes: General: appearance normal, both eyes and all related structures Periorbital: periorbital findings normal Sclera: sclerae normal Pupils: Equal, round and reactive pupils present Neck: Neck: normal visual inspection Chest: Chest palpation & inspection: normal inspection of the chest Resp: Effort & Inspection: normal respiratory effort, able to speak in complete sentences and no respiratory distress Cardio: Jugular venous distension: no JVD Skin: General skin exam: normal color and no rashes or lesions noted Neuro: General: oriented to person, oriented to place and oriented to time Cranial nerves: Yes Equal, round and reactive pupils present Extrem: General: normal to inspection Course Course Emergency Course: Given a dose of amoxicillin Vital Signs Vital signs: Vital Signs Temperature 98.0 F 10/30/23 16:17 Pulse Rate 88 10/30/23 16:17 Respiratory Rate 20 10/30/23 16:17 Blood Pressure 99/55 L 10/30/23 16:17 Pulse Oximetry 100 10/30/23 16:17 Oxygen Delivery Room Air 10/30/23 16:17 Temperature 98.0 F 10/30/23 16:17 Pulse Rate 88 10/30/23 16:17 Respiratory Rate 20 10/30/23 16:17 Blood Pressure 99/55 L 10/30/23 16:17 Pulse Oximetry 100 10/30/23 16:17 Oxygen Delivery Room Air 10/30/23 16:17 Medical Decision Making Vital Signs Vital Signs: Vital Signs Temperature 98.0 F 10/30/23 16:17 Pulse Rate 88 10/30/23 16:17 Respiratory Rate 20 10/30/23 16:17 Blood Pressure 99/55 L 10/30/23 16:17 Pulse Oximetry 100 10/30/23 16:17 Oxygen Delivery Room Air 10/30/23 16:17 Temperature 98.0 F 10/30/23 16:17 Pulse Rate 88 10/30/23 16:17 Respiratory Rate 20 10/30/23 16:17 Blood Pressure 99/55 L 10/30/23 16:17 Pulse Oximetry 100 10/30/23 16:17 Oxygen Delivery Room Air 10/30/23 16:17 Discharge Plan Discharge Clinical Impression: Pharyngitis Patient Disposition: Home, Self-Care Condition: Stable Instructions: Antibiotic Form Prescriptions: New amoxicillin 875 mg tablet 875 mg PO Q12H Qty: 20 0RF Follow-up/Referrals: UNKNOWN,DOCTOR [Primary Care Provider] -
[2023-10-30 16:40] VITALS: BP 100/60; PULSE 85; RESP 20; TEMP 36.7; O2SAT 99
== END 2023-10-30 16:44 | disposition home or self-care (01) ==
PROVIDERS: Emergency Provider Family Medicine
DX: J02.9 Acute pharyngitis, unspecified (principal); F17.210 Nicotine dependence, cigarettes, uncomplicated
CPT/HCPCS: 99283; A9270

== ENCOUNTER 2024-01-04 06:38 | Emergency (ER) | payer OTHER, SELFPAY ==
[2024-01-04] VITALS (9 sets, daily range): BP systolic 94–113; BP diastolic 50–71; PULSE 106–114; RESP 16–23; TEMP 36.6; O2SAT 95–98
--- NOTE | 2024-01-04 06:49 | ED.URI ---
HPI - URI/Sore Throat General Chief Complaint: Upper Respiratory Infection Stated Complaint: shortness pf breath Time Seen by Provider: 01/04/24 07:27 Source: patient Mode of arrival: ambulatory Limitations: no limitations History of Present Illness HPI Narrative: 33-year-old female who is A1, 22 weeks with a recent normal ultrasound presents to the ER with a 3 day history of -- fever with chills -- cough which is nonproductive -- substernal burning chest pain which is worse with breathing coughing -- shortness of breath. No nausea/ vomiting. MD elicited complaint: fever, cough and nasal congestion Onset (ago): day(s) ( Three days) Consistency: constant Able to tolerate fluids by mouth: Yes Exacerbating factors: nothing Relieving factors: nothing Associated symptoms: denies other symptoms, fever, nasal congestion, cough and shortness of breath Treatments prior to arrival: none Related Data Allergies Allergy/AdvReac Type Severity Reaction Status Date / Time No Known Drug Allergies Allergy Unknown Unknown Verified 01/04/24 06:53 Review of Systems Review of Systems: All systems reviewed & are unremarkable except as noted in HPI and below Constitutional: Constitutional: Reports as per HPI, Reports no additional constitutional complaints and Reports fever(s) Eyes: Eyes: Reports as per HPI and Reports no additional eye complaints ENT: Reports system reviewed and no additional complaints, except as documented, Reports as per HPI and Reports nasal congestion Cardiovascular: Cardiovascular: Reports as per HPI, Reports no additional cardiovascular complaints and Reports chest pain ( burning substernal pain which is worse with coughing and de) Respiratory: Respiratory: Reports as per HPI and Reports dyspnea Gastrointestinal: Gastrointestinal: Reports as per HPI and Reports no additional gastrointestinal complaints Genitourinary: Genitourinary: Reports no additional female genitourinary complaints and Reports as per HPI Comments: 22 weeks . No vaginal discharge. Musculoskeletal: Musculoskeletal: Reports no additional musculoskeletal complaints and Reports as per HPI Integumentary/Breasts: Skin/Breast: Reports system reviewed and no additional complaints, except as docu and Reports as per HPI Neurologic: Reports system reviewed and no additional complaints, except as documented and Reports as per HPI Psychiatric: Psychiatric: Reports no additional psychiatric complaints and Reports as per HPI Endocrine: Endocrine: Reports no additional endocrine complaints and Reports as per HPI Hematologic/Lymphatic: Hematologic/Lymphatic: Reports no additional hematologic/lymphatic complaints and Reports as per HPI Allergic/Immunologic: Allergic/Immunologic: Reports no additional allergic/immunologic complaints and Reports as per HPI [facility] Past Medical History Medical History No pertinent past medical history Surgical History Surgical History No pertinent past surgical history Social History Social History Smoking status: Current every day smoker Tobacco type: cigarettes Alcohol intake: never Substance use: never Living arrangements: with family Gender identity (if verbalized by the patient): Female Exam Const: General: no acute distress Orientation/consciousness: patient oriented x3 Limitations: no limitations HENMT: Head: normal to inspection Ears: external ears normal Face/Nose/Sinus: Normal external nose present Face and sinus: normal facial exam Mouth: Yes Normal oral and palatal mucosa present Throat: posterior oropharynx normal Eyes: Conjunctivae: conjunctivae normal Pupils: Equal, round and reactive pupils present EOM: EOMs intact bilaterally Direct Ophthalmoscopy: no photophobia Neck: Neck: normal visual
--- NOTE | 2024-01-04 06:55 | PC.NURSE ---
PATIENT GIVEN WARM BLANKET PER REQUEST. CALL LIGHT WITHIN REACH. DR TSE AT BEDSIDE FOR ASSESSMENT AND PLAN. SPOUSE AT BEDSIDE.
--- NOTE | 2024-01-04 07:08 | PC.NURSE ---
PATIENT REPORT GIVEN TO KEVIN DALTON FOR CONTINUATION OF CARE ON DAY SHIFT. PATIENT AWAKE AND ALERT WITH SPOUSE AT BEDSIDE. HIV CONSENT OBTAINED FOR REFUSAL OF SERVICE. PATIENT UPDATE PROVIDED. CALL LIGHT WITHIN REACH.
[2024-01-04] MEDS: ACETAMINOPHEN 325 MG TABLET 650 MG PO (07:11)
[2024-01-04 07:21] LABS: Appearance Urine Clear (Clear); Bilirubin Urine 1+ (Negative); Blood Urine 3+ (Negative); Color Urine Yellow (Yellow); Glucose Urine UA Negative (Negative); Ketones Urine 3+ (Negative); Leukocyte Esterase Ur 1+ LEU/UL (Negative); Nitrate Urine Negative (Negative); Protein Urine 2+ (Negative); Specific Grav Ur >= 1.030 (1.010-1.020)
[2024-01-04 07:21] LABS: SARS-CoV-2 RNA PCR Negative (Negative)
[2024-01-04 07:22] LABS: Influenza A QL RT-PCR Negative (Negative); Influenza B QL RT-PCR Positive (Negative); RSV RNA, RT-PCR Negative (Negative)
[2024-01-04 07:26] LABS: Add Urine Microscopic? YES; Bacteria Urine 2+ /hpf; Mucus Urine Few /lpf; Squamous Epithelial Cell Urine Moderate /hpf (Few)
--- NOTE | 2024-01-06 12:43 | PC.NURSE ---
Final urine culture report, Mixed genital ashtyn isolated, no further action or treatment needed per ERP Dr. Mueller
== END 2024-01-04 07:41 | disposition home or self-care (01) ==
PROVIDERS: Internal Medicine Critical Care Medicine; Emergency Provider Emergency Medicine
DX: O23.42 Unspecified infection of urinary tract in pregnancy, second trimester (principal); N39.0 Urinary tract infection, site not specified; O99.512 Diseases of the respiratory system complicating pregnancy, second trimester; J10.1 Influenza due to other identified influenza virus with other respiratory manifestations; O99.332 Smoking (tobacco) complicating pregnancy, second trimester; Z3A.22 22 weeks gestation of pregnancy; Z20.822 Contact with and (suspected) exposure to COVID-19
CPT/HCPCS: 81001; 87086; 87088; 87637; 99283; A9270

== ENCOUNTER 2024-04-24 06:01 | Observation (INO) | payer OTHER, SELFPAY ==
[2024-04-24] VITALS (44 sets, daily range): BP systolic 109–126; BP diastolic 64–78; PULSE 64–92; O2SAT 92–98; BMI 35.5
--- NOTE | 2024-04-24 09:06 | PM.OBTRLD ---
OB - Triage/Final Diagnosis Visit Information Date of evaluation: 04/24/24 Reason for evaluation: threatened labor Comments/Additional reasons for admission: I have assessed the risk for this patient, Francesca Galarza, and determined that she would benefit from observation care. Evaluation Vital signs: Vital Signs - 24 hr 04/24/24 06:24 04/24/24 06:25 04/24/24 06:29 Pulse Rate 75 Blood Pressure 113/69 Pulse Oximetry 96 97 04/24/24 06:30 04/24/24 06:34 04/24/24 06:39 Pulse Rate 76 Blood Pressure 109/64 Pulse Oximetry 97 97 04/24/24 06:44 04/24/24 06:45 04/24/24 06:49 Pulse Rate 80 Blood Pressure 111/74 Pulse Oximetry 96 96 04/24/24 06:54 04/24/24 06:59 04/24/24 07:00 Pulse Rate 83 Blood Pressure 116/71 Pulse Oximetry 97 97 04/24/24 07:04 04/24/24 07:09 04/24/24 07:14 Pulse Rate Blood Pressure Pulse Oximetry 97 96 98 04/24/24 07:15 04/24/24 07:19 04/24/24 07:24 Pulse Rate 86 Blood Pressure 116/75 Pulse Oximetry 97 97 04/24/24 07:29 04/24/24 07:30 04/24/24 07:34 Pulse Rate 86 Blood Pressure 115/75 Pulse Oximetry 96 98 04/24/24 07:39 04/24/24 07:44 04/24/24 07:45 Pulse Rate 78 Blood Pressure 126/78 Pulse Oximetry 97 98 04/24/24 07:51 04/24/24 07:56 04/24/24 08:00 Pulse Rate 72 Blood Pressure 121/73 Pulse Oximetry 92 97 04/24/24 08:01 04/24/24 08:06 04/24/24 08:11 Pulse Rate Blood Pressure Pulse Oximetry 97 96 97 04/24/24 08:15 04/24/24 08:16 04/24/24 08:21 Pulse Rate 78 Blood Pressure 123/78 Pulse Oximetry 96 97 04/24/24 08:26 04/24/24 08:30 04/24/24 08:31 Pulse Rate 72 Blood Pressure 117/68 Pulse Oximetry 97 97 04/24/24 08:36 04/24/24 08:41 04/24/24 08:45 Pulse Rate 66 Blood Pressure 116/70 Pulse Oximetry 97 98 04/24/24 08:46 04/24/24 08:51 04/24/24 08:56 Pulse Rate Blood Pressure Pulse Oximetry 96 97 97 04/24/24 09:00 04/24/24 09:01 Pulse Rate 73 Blood Pressure 116/66 Pulse Oximetry 97
--- NOTE | 2024-04-24 09:13 | OBADM ---
This patient, Francesca Galarza, admitted to the OB room Labor/Delivery/Recovery 105 for observation. Patient/family oriented to hospital policies and general routines including ID bracelet, bed and alarms, visiting hours, pain management, procedures, bathroom and other care routines, personal items, smoking policy, room service/diet, and visiting hours. Patient/Family are encouraged to report perceived risks to care and to ask questions if they do not understand what they are told or what they should do.
== END 2024-04-24 09:27 ==
PROVIDERS: Admitting Provider Student in an Organized Health Care Education/Training Program; Visit Provider Student in an Organized Health Care Education/Training Program
DX: O47.9 False labor, unspecified (principal)
CPT/HCPCS: 84112; G0378; G0379

== ENCOUNTER 2024-09-17 20:02 | Emergency (ER) | payer OTHER, SELFPAY ==
[2024-09-17] VITALS (11 sets, daily range): BP systolic 72–108; BP diastolic 43–67; PULSE 56–82; RESP 16–20; TEMP 36.1; O2SAT 98–100
--- NOTE | ~2024-09-17 | CT_ITS ---
CLINICAL INDICATION: Right upper quadrant pain COMPARISON: None. TECHNIQUE: Multiple contiguous axial images of the abdomen and pelvis were performed following the ad ministration of with 100 mL Omnipaque-350 intravenous contrast The dose-length product (DLP) was 1017.55 mGy-cm. Automated exposure control and iterative reconstruction technique were employed. FINDINGS/OBSERVATIONS: Visualized lower thorax: The bilateral lung bases are clear. The heart is of normal size, without pericardial effusion. Small hiatal hernia is present. Liver: The liver is increased in attenuation and size measuring 20 cm in longitudinal dimension. Gallbladder and biliary system: The gallbladder is significantly distended, along with gallbladder wall thickening and pericholecysti c fluid. Surrounding inflammatory change is also noted. Pancreas: The pancreas enhances homogeneously without ductal dilatation. Spleen: The spleen enhances homogeneously and is not enlarged measuring 8 cm in longitudinal dimension. Kidneys: The bilateral kidneys enhance symmetrically without hydronephrosis or renal calculi. Adrenal glands: Unremarkable. Gastrointestinal tract: Unremarkable. Appendix: The appendix is of normal caliber (axial series, image 153) Vasculature: Unremarkable. Lymph nodes: No pathologically enlarged or morphologically suspicious lymph nodes within the retroperitoneum or at the root of the mesentery. Pelvic structures: The bladder is decompressed, and otherwise unremarkable. The uterus is anteverted and anteflexed. Small amount of free fluid within the pelvis, likely physiologic. Body wall and musculoskeletal: Small fat-containing umbilical hernia. No significant degenerative disease within the lower thoracic or lumbosacral spine. IMPRESSION: Findings consistent with acute cholecystitis, as detailed above. Reviewed, dictated and finalized at location [facility]. [facility]
[2024-09-17 20:28] LABS: Basophils Absolute Auto 0.04 K/mm3 (0.00-0.10); Basophils Percent Auto 0.4 % (0.0-1.0); Eosinophils Absolute Auto 0.16 K/mm3 (0.02-0.50); Eosinophils Percent Auto 1.8 % (1.0-6.0); Hematocrit 37.9 % (35.0-49.0); Hemoglobin 12.6 g/dL (12.0-15.0); Immature Granulocyte Absolute 0.03 K/mm3 (0.00-0.00); Immature Granulocyte Percent A 0.3 % (0.0-0.0); Lymphocytes Absolute Auto 1.82 K/mm3 (1.10-4.50); Lymphocytes Percent Auto 20.1 % (18.0-42.0); Mean Corpuscular HGB Conc 33.2 g/dL (32-36); Mean Corpuscular Hemoglobin 29.4 pg (27.0-31.0); Mean Corpuscular Volume 88.6 fL (78.0-102.0); Mean Platelet Volume 9.5 fl (9.2-11.8); Monocytes Absolute Auto 0.54 K/mm3 (0.10-0.90); Neutrophils Absolute Auto 6.45 K/mm3 (1.70-7.20); Neutrophils Percent Auto 71.4 % (50.0-70.0); Platelet Count Result 276 K/mm3 (150-420); Red Blood Count 4.28 M/mm3 (4.20-5.40); Red Cell Distribution Width 12.2 % (11.6-14.4)
[2024-09-17] MEDS: KETOROLAC 30 MG/ML VIAL (*BKC) IV PUSH (20:29)
[2024-09-17 20:40] LABS: Alanine Aminotransferase 20 U/L (14-59); Albumin Level 3.3 g/dL (3.4-5.0); Alkaline Phosphatase 82 U/L (46-116); Anion Gap 10 mmol/L (4-12); Aspartate Amino Transferase 18 U/L (15-37); Bilirubin,Total 0.2 mg/dL (0.00-1.00); Blood Urea Nitrogen 13 mg/dL (7-18); Calcium 8.8 mg/dL (8.5-10.1); Carbon Dioxide 26 mmol/L (21-32); Chloride 102 mmol/L (98-108); Estimated CRCL calculation 98 ml/min; Estimated Glomerular Filt Rate > 60; Glucose 93 mg/dL (70-99); Lipase 31 U/L (16-77); Osmolality Calculated 286 mOsm/kg (285-295); Potassium 3.7 mmol/L (3.5-5.1); Sodium 138 mmol/L (136-145); Total Protein 6.9 g/dL (6.4-8.2)
[2024-09-17 20:42] LABS: Add Urine Microscopic? YES; Appearance Urine Clear (Clear); Bilirubin Urine Negative (Negative); Blood Urine Negative (Negative); Color Urine Yellow (Yellow); Glucose Urine UA Negative (Negative); Ketones Urine Trace (Negative); Leukocyte Esterase Ur Trace (Negative); Nitrate Urine Negative (Negative); Protein Urine Negative (Negative); Specific Grav Ur >= 1.030 (1.010-1.020); Urobilinogen Urine 0.2 mg/dL (0.2-1.0)
[2024-09-17 20:46] LABS: Bacteria Urine 1+ /hpf; RBC Urine 0-2 /hpf (0-2); Squamous Epithelial Cell Urine Moderate /hpf (Few); WBC Urine 0-3 /hpf (0-3)
[2024-09-17 20:47] LABS: Mucus Urine Few /lpf
--- NOTE | 2024-09-17 21:26 | ED_ITS ---
HPI - Abdominal Pain General Chief Complaint: Abdominal Pain Stated Complaint: Abdominal Pain Source: patient Mode of arrival: ambulatory Limitations: no limitations History of Present Illness HPI narrative: patient is a 34-year-old female with significant past medical history presents today for abdominal pain. Patient has abdominal pain in the right upper quadrant it is been there for 2 days now. She denies any other symptom she does not have any nausea vomiting she does not have any diarrhea or constipation. The only symptom is that right upper quadrant pain. She says it is tender to palpation in that area. Denies any systemic symptoms eyes any fevers denies any shortness of breath or chest pain. MD elicited complaint: abdominal pain Pertinent past history: none Onset (ago): day(s) Pain Consistency: intermittent Location: RUQ Severity: mild Pain scale (0-10): 4 Quality: stabbing Radiation: RUQ Migration to: no migration Exacerbating factors: nothing Relieving factors: nothing Related Data Home Medications Medication Instructions Recorded Confirmed No Home Medications 04/24/24 09/17/24 Allergies Allergy/AdvReac Type Severity Reaction Status Date / Time No Known Drug Allergies Allergy Unknown Unknown Verified 09/17/24 20:12 Review of Systems Review of Systems: All systems reviewed & are unremarkable except as noted in HPI and below Constitutional: Constitutional: Reports as per HPI Eyes: Eyes: Reports no additional eye complaints ENT: Reports system reviewed and no additional complaints, except as documented Cardiovascular: Cardiovascular: Reports no additional cardiovascular complaints Respiratory: Respiratory: Reports no additional respiratory complaints Gastrointestinal: Gastrointestinal: Reports no additional gastrointestinal complaints Genitourinary: Genitourinary: Reports no additional female genitourinary complaints Musculoskeletal: Musculoskeletal: Reports no additional musculoskeletal complaints Integumentary/Breasts: Skin/Breast: Reports system reviewed and no additional complaints, except as docu Neurologic: Reports system reviewed and no additional complaints, except as documented Psychiatric: Psychiatric: Reports no additional psychiatric complaints Endocrine: Endocrine: Reports no additional endocrine complaints Hematologic/Lymphatic: Hematologic/Lymphatic: Reports no additional hematologic/lymphatic complaints Allergic/Immunologic: Allergic/Immunologic: Reports no additional all ergic/immunologic complaints PMFSH Past Medical History Medical History No pertinent past medical history Surgical History Surgical History No pertinent past surgical history Social History Social History Smoking status: Current every day smoker Tobacco type: cigarettes Alcohol intake: never Substance use: never Living arrangements: with family Gender identity (if verbalized by the patient): Female Exam Const: General: healthy appearing, no acute distress and alert Nutritional Appearance: well nourished Orientation/consciousness: patient oriented x3 HENMT: Head: normal to inspection Ears: external ears normal Face/Nose/Sinus: Normal external nose present Face and sinus: normal facial exam Eyes: Conjunctivae: conjunctivae normal Pupils: Equal, round and reactive pupils present EOM: EOMs intact bilaterally Neck: Neck: normal visual inspection Chest: Chest palpation & inspection: normal inspection of the chest Resp: Effort & Inspection: normal respiratory effort Auscultation: clear to auscultation bilaterally Cardio: Rate: regular rate Rhythm: regular rhythm GI: GI Palp: Yes Soft to palpation Other: Positive Rodriguez sign, pain to palpation gallbladder Back/Spine/Pelvis: Back: no CVA tenderness Skin: General skin exam: normal color Rashes: no rashes Wounds: no wounds Neuro: General: patient oriented x3, moves all extremities and no meningeal signs Extrem: General: normal to inspection Psych: Mental Status: mental status grossly normal Affect: normal affect Attitude: cooperative Course Reevaluation(s) Reevaluation #1: CT scan of the abdomen pelvis with contrast showed acute cholecystitis. We will try to get hold of [facility] for transfer for cholecystectomy. Date: 09/17/24 Time: 22:01 Vital Signs Vital signs: Vital Signs Temperature 97 F L 09/17/24 20:02 Pulse Rate 82 09/17/24 20:02 Respiratory Rate 16 09/17/24 20:02 Blood Pressure 108/66 09/17/24 20:02 Pulse Oximetry 98 09/17/24 20:02 Oxygen Delivery Room Air 09/17/24 20:02 Temperature 97 F L 09/17/24 20:02 Pulse Rate 57 L 09/17/24 23:30 Respiratory Rate 18 09/17/24 23:30 Blood Pressure 104/67 09/17/24 23:45 Pulse Oximetry 100 09/17/24 23:45 Oxygen Delivery Room Air 09/17/24 23:30 MDM - Abdominal Pain MDM Narrative Medical decision making narrative: patient does not have any other signs or symptoms he says his right upper quadrant pain. She does have a positive Rodriguez sign gallbladder. Her because of this will do a CT scan of the abdomen and pelvis with contrast and do a full pill over panel on her as well. CT scan did in fact show acute cholecystitis. We will try to get her to another facility for surgery to have the gallbladder removed. Start her on vanc and Zosyn for antibiotics in the meantime Differential Diagnosis Differential diagnosis: Likely abdominal pain and other (cholecystitis ) Medical Records Attestation: I reviewed the patient's medical records. Lab Data Attestation: I reviewed the patient's lab results. 09/17/24 20:24 09/17/24 20:24 Labs: Lab Results 09/17/24 09/17/24 Range/Units 20:24 20:37 WBC 9.0 (4.8-10.8) K/mm3 RBC 4.28 (4.20-5.40) M/mm3 Hgb 12.6 (12.0-15.0) g/dL Hct 37.9 (35.0-49.0) % MCV 88.6 (78.0-102.0) fL MCH 29.4 (27.0-31.0) pg MCHC 33.2 (32-36) g/dL RDW 12.2 (11.6-14.4) % Plt Count 276 (150-420) K/mm3 MPV 9.5 (9.2-11.8) fl Immature Gran % (Auto) 0.3 H (0.0-0.0) % Neut % (Auto) 71.4 H (50.0-70.0) % Lymph % (Auto) 20.1 (18.0-42.0) % [place] % (Auto) 6.0 (2.0-11.0) % Eos % (Auto) 1.8 (1.0-6.0) % Baso % (Auto) 0.4 (0.0-1.0) % Lymph # (Auto) 1.82 (1.10-4.50) K/mm3 [place] # (Auto) 0.54 (0.10-0.90) K/mm3 Eos # (Auto) 0.16 (0.02-0.50) K/mm3 Baso # (Auto) 0.04 (0.00-0.10) K/mm3 Abs Immat Gran (auto) 0.03 H (0.00-0.00) K/mm3 Absolute Neuts (auto) 6.45 (1.70-7.20) K/mm3 Absolute Nucleated RBC 0.00 (0.00-0.00) K/mm3 Nucleated RBC % 0.0 (0-0.0) % Sodium 138 (136-145) mmol/L Potassium 3.7 (3.5-5.1) mmol/L Chloride 102 (98-108) mmol/L Carbon Dioxide 26 (21-32) mmol/L Anion Gap 10 (4-12) mmol/L BUN 13 (7-18) mg/dL Creatinine 0.82 (0.55-1.02) mg/dL Estim Creat Clear Calc 98 ml/min Estimated GFR > 60 (59 - ) Glucose 93 (70-99) mg/dL Calculated Osmolality 286 (285-295) mOsm/kg Calcium 8.8 (8.5-10.1) mg/dL Total Bilirubin 0.2 (0.00-1.00) mg/dL AST 18 (15-37) U/L ALT 20 (14-59) U/L Alkaline Phosphatase 82 (46-116) U/L Total Protein 6.9 (6.4-8.2) g/dL Albumin 3.3 L (3.4-5.0) g/dL Lipase 31 (16-77) U/L Urine Color Yellow (Yellow) Urine Appearance Clear (Clear) Urine pH 6.0 (5.0-8.0) Ur Specific [place] >= 1.030 H (1.010-1.020) Urine Protein Negative (Negative) Urine Glucose (UA) Negative (Negative) Urine Ketones Trace H (Negative) Ur Blood (Man) Negative (Negative) Urine Nitrate Negative (Negative) Urine Bilirubin Negative (Negative) Urine Urobilinogen 0.2 (0.2-1.0) mg/dL Ur Leukocyte Esterase Trace H (Negative) Urine RBC 0-2 (0-2) /hpf Urine WBC 0-3 (0-3) /hpf Ur Squamous Epith Cells Moderate H (Few) /hpf Urine Bacteria 1+ H (None) /hpf Urine Mucus Few H /lpf Imaging Data Radiologist's impression: ITS Impressions Abdomen/Pelvis CT 09/17/24 21:23 IMPRESSION: Findings consistent with acute cholecystitis, as detailed above. Discharge Plan Discharge Clinical Impression: Acute cholecystitis Patient Disposition: Acute Care Hospital Condition: Stable Instructions: Cholecystitis (ED) Prescriptions: No Action No Home Medications Follow-up/Referrals: UNKNOWN,DOCTOR [Primary Care Provider] - Time of Disposition: 00:00
[2024-09-17] MEDS: PIPERACILLN/TAZ 3.375GM/NS50ML 3.375 GM/50 ML BAG IVPB (22:28)
[2024-09-17] MEDS: SODIUM CHLORIDE 0.9% IV 1,000 ML 999 ML IV CONT (22:53)
[2024-09-17] MEDS: VANCOMYCIN 1,250 MG/NS 250 ML 1,250 MG/250 ML BAG 166.67 MG IVPB (23:50)
[2024-09-18] VITALS: BP 105/64; O2SAT 99
[2024-09-18 00:16] VITALS: BP 110/69
[2024-09-18 00:25] VITALS: BP 105/64; PULSE 57; RESP 18; TEMP 36.6; O2SAT 100
== END 2024-09-18 00:25 | disposition short-term general hospital (02) ==
PROVIDERS: Emergency Provider Family Medicine
DX: K81.0 Acute cholecystitis (principal); F17.210 Nicotine dependence, cigarettes, uncomplicated
CPT/HCPCS: 36415; 74177; 80053; 81001; 83690; 85025; 96365; 96367; 96375; 99285; J1885; J2543; J3370; J7030; Q9967

== ENCOUNTER 2024-09-18 00:56 | Observation (INO) | payer OTHER, SELFPAY ==
[2024-09-18] VITALS (19 sets, daily range): BP systolic 99–132; BP diastolic 52–78; PULSE 54–85; RESP 12–20; TEMP 36.1–36.6; O2SAT 93–100; BMI 35.1
--- NOTE | 2024-09-18 00:57 | ADMGEN ---
This patient, Francesca Galarza, was admitted to Medical Room 252-01. Patient/family oriented to hospital policies and general routines including ID bracelet, bed and alarms, visiting hours, pain management, procedures, bathroom and other care routines, personal items, smoking policy, room service/diet, and visiting hours. Information on how to activate the Rapid Response Team has been discussed. Patient/Family are encouraged to report perceived risks to care and to ask questions if they do not understand what they are told or what they should do.
[2024-09-18] MEDS: SODIUM CHLORIDE 0.9% IV 1,000 ML 100 ML IV CONT ×2 (01:31→11:05)
[2024-09-18] MEDS: MORPHINE SULFATE (*CRX) 2 MG/ML INJ IV PUSH (01:35)
[2024-09-18 05:44] LABS: Hematocrit 37.4 % (37.0-47.0); Hemoglobin 12.1 g/dL (12.0-15.0); Mean Corpuscular HGB Conc 32.4 g/dl (32-36); Mean Corpuscular Hemoglobin 29.3 pg (26-34); Mean Corpuscular Volume 90.6 fl (80-100); Mean Platelet Volume 9.8 fl (7.4-10.4); Platelet Count Result 227 k/mm3 (150-375); Red Blood Count 4.13 M/mm3 (4.2-5.4); Red Cell Distribution Width 12.4 % (11.5-14.5); White Blood Count 6.5 K/mm3 (4.5-10.0)
[2024-09-18 05:56] LABS: Alanine Aminotransferase 16 U/L (6-35); Albumin Level 3.5 g/dL (3.5-5.1); Alkaline Phosphatase 57 U/L (38-126); Anion Gap 4 mmol/L (4-12); Aspartate Amino Transferase 16 U/L (14-36); Bilirubin,Total 0.5 mg/dL (0.2-1.3); Blood Urea Nitrogen 9 mg/dL (7-17); Calcium 8.1 mg/dL (8.4-10.2); Carbon Dioxide 25 mmol/L (22-30); Chloride 107 mmol/L (98-107); Estimated CRCL calculation 114 ml/min; Estimated Glomerular Filt Rate > 60; Glucose 94 mg/dL (65-110); Potassium 3.8 mmol/L (3.4-5.0); Sodium 136 mmol/L (137-145)
--- NOTE | 2024-09-18 10:15 | PC.NURSE ---
Report called to Dov patelop.
--- NOTE | 2024-09-18 11:40 | PM.IMHP ---
H&P: HPI History of Present Illness Date/Time: 09/18/24 11:40 Chief Complaint: RUQ pain Narrative: This is a 34-year-old woman who presented to the emergency department in [place] last night with complaints of right upper quadrant abdominal pain. Her pain started 1 day prior. She does not recall anything that she ate that could have caused this. She had never had any symptoms like this in the past. Her pain worsened throughout the day yesterday and therefore she came to the ED. She denied any nausea or vomiting. She denies any fevers or chills. She denies any change in bowel habits. She has never had any history of liver or pancreatic problems. Workup in the emergency department in [place] showed evidence of acute cholecystitis. She was then transferred to [facility] for further treatment. Review of Systems Review of Systems: All systems reviewed & are unremarkable except as noted in HPI and below Eyes: Eyes: Denies change in vision ENT: Denies hearing loss, Denies neck pain and Denies sore throat Cardiovascular: Cardiovascular: Denies chest pain and Denies dyspnea Respiratory: Respiratory: Denies cough, Denies dyspnea and Denies wheezing Genitourinary: Genitourinary: Denies hematuria and Denies dysuria Musculoskeletal: Musculoskeletal: Denies arthralgias, Denies joint swelling and Denies neck pain Allergic/Immunologic: Allergic/Immunologic: Denies wheezing PMFSH Past Medical History Medical History No pertinent past medical history Surgical History Surgical History History of bilateral salpingectomy Family History Family History Father Acute myocardial infarction Cerebrovascular accident Diabetes mellitus Social History Social History Smoking packs per day: 0.5 Smoking cigarettes per day: 10.0 Smoking status: Current every day smoker Tobacco type: cigarettes Alcohol intake: never Substance use: never Do You Feel Safe in your Home?: Yes Lack of Transportation: No Lack of Food: Never True Current Housing: I Have Housing Concerned About Future Housing: No Difficulty Paying Gas/Electric Bills: No Difficulty Paying for Meds: No Currently Unemployed: No Education: High School Diploma/GED Difficulty w/ Childcare or Family Care: No Living arrangements: with family Gender identity (if verbalized by the patient): Female Spiritual care concerns: No Meds Home Medications and Allergies Home Medications Medication Instructions Recorded Confirmed Type No Home Medications 04/24/24 09/18/24 History Allergies Allergy/AdvReac Type Severity Reaction Status Date / Time No Known Drug Allergies Allergy Unknown Unknown Verified 09/17/24 20:12 Vital Signs Vital Signs - 24 hr 09/18/24 01:01 09/18/24 02:09 09/18/24 05:43 Temperature 97.6 F 97.6 F 97.7 F Pulse Rate 71 68 68 Respiratory Rate 14 16 16 Blood Pressure 102/58 L 124/76 99/59 L Pulse Oximetry 100 100 98 Oxygen Delivery 09/18/24 06:24 09/18/24 08:24 09/18/24 10:15 Temperature 97.9 F Pulse Rate 68 63 Respiratory Rate 16 16 16 Blood Pressure 102/52 L Pulse Oximetry 98 98 99 Oxygen Delivery Room Air Room Air Exam Const: General: alert; No acute distress Orientation/consciousness: patient oriented x3 Limitations: no limitations HENMT: Head: normocephalic and atraumatic Ears: hearing grossly normal bilaterally Face/Nose/Sinus: Normal external nose present and Normal nares present Mouth: Yes Normal oral and palatal mucosa present and Yes moist mucous membranes Eyes: General: appearance normal, both eyes and all related structures Conjunctivae: conjunctivae normal Sclera: sclerae normal Pupils: Equal, round and reactive pupils present EOM: EOMs intact bilaterally Neck: Neck: normal visual inspection, full ROM, no lymphadenopathy, supple and no JVD Lymphatic: no lymphadenopathy noted Chest: Chest palpation & inspection: normal inspection of the chest Resp: Effort & Inspection: normal respiratory effort and able to speak in complete sentences Auscultation: clear to auscultation bilaterally Percussion: percussion normal Cardio: Jugular venous distension: no JVD Rate: regular rate Rhythm: regular rhythm Heart sounds: S1 normal heart sound present and S2 normal heart sound present Peripheral pulses: Peripheral pulses 2+ throughout GI: Inspection: normal to inspection and non-distended GI Palp: Yes Soft to palpation, Yes Tenderness to palpation present (GI) (RUQ), No Guarding due to palpation present (GI) and No Rebound tenderness present Auscultation: normal bowel sounds : General: Yes no CVA tenderness Back/Spine/Pelvis: Back: no CVA tenderness Skin: General skin exam: normal color and dry skin Neuro: General: patient oriented x3, gait normal, moves all extremities, no focal motor deficits and CN's II-XI intact bilaterally Cranial nerves: Yes Equal, round and reactive pupils present Speech: normal speech Extrem: General: normal to inspection and capillary refill normal H&P: Results Labs Labs: Short CBC 09/18/24 Range/Units 05:32 WBC 6.5 (4.5-10.0) K/mm3 Hgb 12.1 (12.0-15.0) g/dL Hct 37.4 (37.0-47.0) % Plt Count 227 (150-375) k/mm3 BMP 09/18/24 05:32 Sodium 136 L Potassium 3.8 Chloride 107 Carbon Dioxide 25 BUN 9 Creatinine 0.70 Glucose 94 Calcium 8.1 L Liver Function 09/18/24 Range/Units 05:32 Total Bilirubin 0.5 (0.2-1.3) mg/dL AST 16 (14-36) U/L ALT 16 (6-35) U/L Alkaline Phosphatase 57 (38-126) U/L Albumin 3.5 (3.5-5.1) g/dL Imaging CT scan - abdomen: Radiologist's impression: IMPRESSION: Findings consistent with acute cholecystitis, as detailed above. Assessment and Plan Assessment and plan (1) Acute cholecystitis: Code(s): K81.0 - Acute cholecystitis Status: Acute Plan I have reviewed the CT and discussed the findings with the patient. She has evidence of acute cholecystitis. She was transferred to [facility] for further treatment. Have discussed treatment options including non operative treatment and surgery. Patient feels comfortable proceeding with surgery. I have recommended laparoscopic cholecystectomy, de Chantel assisted. I discussed risks of conversion to open, other organ injuries, bleeding, and infection. I discussed the procedure, risks, benefits, and alternatives. Questions were answered.
--- NOTE | 2024-09-18 11:46 | WPDHPUPDATE1 ---
History and Physical Update Update Date/Time: 09/18/24 11:46 History and Physical has been reviewed, including an updated exam of the patient. There are NO changes in the patient's condition. Risks, benefits, and alternatives have been discussed and questions answered. Patient agrees to proceed with procedure.
--- NOTE | 2024-09-18 13:10 | PC.NURSE ---
To OR via wheelchair. Voiding without difficulty.
--- NOTE | 2024-09-18 13:32 | WPDANESEPPF ---
Anes - Initial Pre Proc Eval Procedure: Operation Date: 09/18/24 14:30 Proposed Procedures p Laparoscopic Cholecystectomy, Davinci Assisted - Chucky Coffman DO Date/Time: 09/18/24 13:32 Surgeon: Chucky Coffman DO Pre Op Diagnosis: Acute cholecystitis Patient Data Age: 34 Gender: F Height: 1.68 m Weight: 98.6 kg Last Vital Signs Temp 36.6 C 09/18/24 10:15 Pulse 63 09/18/24 10:15 Resp 16 09/18/24 10:15 BP 102/52 L 09/18/24 10:15 Pulse Ox 99 09/18/24 10:15 O2 Del Method Room Air 09/18/24 08:24 Allergies Allergy/AdvReac Type Severity Reaction Status Date / Time No Known Drug Allergies Allergy Unknown Unknown Verified 09/17/24 20:12 Home Medications Medication Instructions Recorded Confirmed Type No Home Medications 04/24/24 09/18/24 History Laboratory Tests 09/18/24 05:32 WBC 6.5 K/mm3 (4.5-10.0) RBC 4.13 L M/mm3 (4.2-5.4) Hgb 12.1 g/dL (12.0-15.0) Hct 37.4 % (37.0-47.0) MCV 90.6 fl (80-100) MCH 29.3 pg (26-34) MCHC 32.4 g/dl (32-36) RDW 12.4 % (11.5-14.5) Plt Count 227 k/mm3 (150-375) MPV 9.8 fl (7.4-10.4) Sodium 136 L mmol/L (137-145) Potassium 3.8 mmol/L (3.4-5.0) Chloride 107 mmol/L (98-107) Carbon Dioxide 25 mmol/L (22-30) Anion Gap 4 mmol/L (4-12) BUN 9 mg/dL (7-17) Creatinine 0.70 mg/dL (0.7-1.0) Estim Creat Clear Calc 114 ml/min Estimated GFR > 60 (59 - ) Glucose 94 mg/dL (65-110) Calcium 8.1 L mg/dL (8.4-10.2) Total Bilirubin 0.5 mg/dL (0.2-1.3) AST 16 U/L (14-36) ALT 16 U/L (6-35) Alkaline Phosphatase 57 U/L (38-126) Total Protein 7.0 g/dL (6.3-8.2) Albumin 3.5 g/dL (3.5-5.1) Patient hx anesthesia problems: none Family hx anesthesia problems: none Results Review: All pre-operative results and documents have been reviewed as part of the pre-operative evaluation. [facility] Past Medical History Medical History (Updated 09/18/24 @ 13:32 by Kenn Sinclair MD) Obesity Surgical History Surgical History History of bilateral salpingectomy Family History Family History Father Acute myocardial infarction Cerebrovascular accident Diabetes mellitus Social History Social History Smoking packs per day: 0.5 Smoking cigarettes per day: 10.0 Smoking status: Current every day smoker Tobacco type: cigarettes Alcohol intake: never Substance use: never Do You Feel Safe in your Home?: Yes Lack of Transportation: No Lack of Food: Never True Current Housing: I Have Housing Concerned About Future Housing: No Difficulty Paying Gas/Electric Bills: No Difficulty Paying for Meds: No Currently Unemployed: No Education: High School Diploma/GED Difficulty w/ Childcare or Family Care: No Living arrangements: with family Gender identity (if verbalized by the patient): Female Spiritual care concerns: No Anes - Eval Final PreProcedure Day of Procedure 09/18/24 13:32 Patient weight: obese Heart: regular rate and rhythm Lungs: clear to auscultation Airway: Mallampati scale class II Neurological: alert and oriented Last oral intake: >/= 8 hours ASA classification: II Emergent: no Anesthetic plan: proceed Anesthesia type and monitoring: general ETT and standard monitoring Results Review: All pre-operative results and documents have been reviewed as part of the pre-operative evaluation. Informed Consent: The patient's anesthetic plan and its attendant risks and benefits were discussed with the patient/family/POA. Questions were solicited and answers provided to the satisfaction of the patient/family/POA.
[2024-09-18] MEDS: SCOPOLAMINE 1 MG PATCH 1 PATCH TRANSDERM (14:00)
[2024-09-18] MEDS: KETOROLAC 15 MG/ML VIAL (*BKC) IV PUSH (14:00)
[2024-09-18] MEDS: LACTATED RINGERS 1,000 ML 30 ML IV CONT (14:00)
[2024-09-18] MEDS: INDOCYANINE GREEN 25 MG VIAL WITH DILUENT 3.75 MG IV PUSH (14:00)
[2024-09-18] MEDS: ACETAMINOPHEN 500 MG TABLET 1000 MG PO (14:00)
[2024-09-18] MEDS: ceFAZolin 2 GM/D5W 50 ML 2 GM/50 ML BAG IVPB (14:13)
[2024-09-18] MEDS: BUPIVACAINE/EPINEPHRINE 0.5% 50 ML VIAL 30 ML INFILTRATE (14:49)
--- NOTE | 2024-09-18 15:41 | P.OP_ITS ---
Procedure Note - Detailed Date of Procedure 09/18/24 Pre-op Diagnosis Acute cholecystitis Post-op Diagnosis Same (Acute calculous cholecystitis, gallbladder hydrops) Procedure Performed 1. Laparoscopic cholecystectomy with cholangiography, da Chantel assisted 2. Interpretation of cholangiography Surgeon Chucky Coffman, Anesthesia General and Local (0.5% bupivacaine) Indications This is a 34-year-old woman who presented to the emergency department in [place] last night with right upper quadrant pain that started 1 day prior. She had never had any symptoms prior to this. She had a CT which showed evidence of acute cholecystitis. She was then transferred to [facility] for further treatment. Discussions were made with the patient about treatment options and decision was made to proceed with robotic assisted laparoscopic cholecystectomy with cholangiography. Findings Robotic assisted laparoscopic cholecystectomy with cholangiography was performed. 1.5 mL of indocyanine green was administered intravenously preoperatively. Near infrared fluorescence imaging was then used intraoperatively to identify the biliary anatomy. The cystic duct was clearly identified along with the common bile duct. I was able to dissect around the cystic duct to obtain my critical view of safety. No other aberrant ductal anatomy was identified. The gallbladder had evidence of hydrops and the gallbladder wall was indurated with multiple pericholecystic adhesions. There were 2 large gallstones within the gallbladder. The cystic duct appeared normal in size. The gallbladder was removed and sent to the lab for pathology. Description of Procedure Procedure as well as risks, benefits, and alternatives were discussed with the patient. Written consent was obtained and placed in chart prior to procedure. 1.5 mL of indocyanine green was given intravenously in preop. Patient was brought back to surgical suite. She was placed supine on operating table. Time-out was done to confirm patient and procedure. she was then intubated by the anesthesia department. her abdomen was then prepped and draped in sterile fashion using chlorhexidine prep. 0.5% bupivacaine was infiltrated locally at the site of each port placement. An 8 mm incision was made in the left upper quadrant and a 5 mm Optiview trocar was then advanced through the abdominal layers under direct visualization. Once inside the abdominal cavity, carbon dioxide insufflation was used to create a pneumoperitoneum. The camera was inserted and the abdomen was inspected. No mediated abnormalities were noted. The patient was placed in 12? reverse Trendelenburg position and rotated 6? to the left. Two 8 mm incisions were made in the right lateral abdomen and 2 8 mm trocars were inserted under direct visualization. An 8 mm incision was made in the supraumbilical region and an 8 mm trocar was inserted under direct visualization. The 5 mm Optiview trocar was then removed and another 8 mm trocar was inserted in its place. a laparoscopic aspirating needle was inserted into the fundus of the gallbladder and about 30 mL of clear mucus bile was aspirated from the gallbladder. This decompressed the gallbladder enough for it to be grasped and manipulated. The robotic arms were then brought up to the patient's bedside and secured to each port. The camera and instruments were inserted. I then moved over to the robotic consult to take control of the camera and instruments. The gallbladder was grasped at the fundus and retracted cephalad. The infundibulum of the gallbladder was then grasped and retracted la terally. Hook electrocautery was then used to carefully dissect around the neck of the gallbladder. The cystic duct was identified and a window was created around it using hook electrocautery. The cystic artery was also identified and a window was created behind it using hook electrocautery. Critical view of safety was identified visualizing the cystic duct running directly into the neck of the gallbladder and the cystic artery running directly into the wall the gallbladder. The camera view was switched to firefly mode and the indocyanine green within the gallbladder and cystic duct was clearly visualized. No other structures were noted running into this region and there did not appear to be any obstruction of the cystic duct impeding flow of bile into the gallbladder. The camera mode was switched back to regular mode. Hemo lock clips were placed on both the cystic duct and cystic artery. Two clips were placed proximally and 1 distally. Hook electrocautery was then used to transect in between the clips. Once safely away from the marcos hepatus, hook electrocautery was used to dissect the gallbladder off of the liver bed. Once the gallbladder was completely dissected free it was then placed in an Endo-Catch bag and removed through the left upper quadrant port site. The liver bed was carefully inspected. Hemostasis appeared adequate under clips appeared secure. No other intra-abdominal abnormalities were noted. A Faheem cone was then used to approximate the fascia of the left upper quadrant port using an 0 Vicryl suture. The remaining instruments and camera were removed and the robotic arms were disengaged from the ports. Pneumoperitoneum was released and the ports were removed. The skin of each of the incisions was then approximated using 4-0 Monocryl subcuticular suture. Exofin glue was then applied on top. Patient was then awakened from anesthesia, extubated, and transferred to recovery. Estimated Blood Loss 5 Pathology Yes (Gallbladder) Complications No immediate complications Condition Stable Disposition Floor [facility] Billing Surgery - Charge Forward: Surgery Billing
[2024-09-18] MEDS: HYDROmorphone HCL INJ (*CRX) 1 MG/ML SYR 0.25 MG IV PUSH ×8 (15:48→16:26)
--- NOTE | 2024-09-18 16:55 | PC.NURSE ---
Retured from OR via stretcher. Spouse at bedside.
[2024-09-18] MEDS: LACTATED RINGERS 1,000 ML 100 ML IV CONT (17:04)
[2024-09-18] MEDS: HYDROcodone/acetaminophen (*CRX) 5-325 MG TABLET 1 TAB PO (19:36)
[2024-09-18] MEDS: IBUPROFEN 600 MG TABLET PO (21:10)
[2024-09-19 00:09] VITALS: BP 126/71; PULSE 60; RESP 14; TEMP 36.6; O2SAT 97
[2024-09-19 05:59] LABS: Hematocrit 37.5 % (37.0-47.0); Hemoglobin 12.7 g/dL (12.0-15.0); Mean Corpuscular HGB Conc 33.9 g/dl (32-36); Mean Corpuscular Volume 88.7 fl (80-100); Mean Platelet Volume 9.7 fl (7.4-10.4); Platelet Count Result 281 k/mm3 (150-375); Red Blood Count 4.23 M/mm3 (4.2-5.4); Red Cell Distribution Width 12.1 % (11.5-14.5); White Blood Count 12.3 K/mm3 (4.5-10.0)
[2024-09-19 06:17] VITALS: BP 114/73; PULSE 64; RESP 16; TEMP 36.6; O2SAT 98
[2024-09-19 06:17] LABS: Anion Gap 7 mmol/L (4-12); Blood Urea Nitrogen 7 mg/dL (7-17); Calcium 9.2 mg/dL (8.4-10.2); Carbon Dioxide 25 mmol/L (22-30); Chloride 102 mmol/L (98-107); Estimated CRCL calculation 155 ml/min; Estimated Glomerular Filt Rate > 60; Glucose 110 mg/dL (65-110); Potassium 4.3 mmol/L (3.4-5.0); Sodium 134 mmol/L (137-145)
[2024-09-19 09:29] VITALS: RESP 16; O2SAT 98
[2024-09-19] MEDS: ENOXAPARIN 40 MG/0.4 ML SYRINGE SUB-Q (09:33)
[2024-09-19 10:26] VITALS: BP 117/67; PULSE 83; RESP 18; TEMP 35.7; O2SAT 97
--- NOTE | 2024-09-19 12:39 | P.DS_ITS ---
DS: Admitting Diagnosis Discharge Date 09/19/2024 Admitting Diagnosis Acute cholecystitis DS: Discharge Diagnosis Discharge Diagnosis (1) Acute calculous cholecystitis: Code(s): K80.00 - Calculus of gallbladder with acute cholecystitis without obstruction Status: Acute DS: Summary Hospital Course Reason for hospitalization: Acute cholecystitis Hospital Course: This is a 34-year-old woman who presented to [facility] with right upper quadrant pain for the previous 24 hours. She had never had symptoms like this in the past. CT showed evidence of acute cholecystitis. Her lab work was otherwise unremarkable. She was transferred to [facility] for further treatment. She underwent laparoscopic cholecystectomy, de Chantel assisted 09/18/2024. Surgery was uncomplicated and she was returned to the surgical floor postoperatively. Her diet and activity were advanced as tolerated. On postop day 1, her pain was gradually improving and she was tolerating a low-fat diet. She remained hemodynamically stable and was ambulating with minimal difficulties. She was discharged on 09/19/2024. Status at Discharge Functional status at discharge: independent ambulation Overall status at discharge: patient is progressing back to baseline Time Spent with Patient Time attestation: Total time spent providing and/or coordinating discharge services: Time spent: Less than 30 minutes Exam Const: General: comfortable and no acute distress Resp: Effort & Inspection: normal respiratory effort Auscultation: clear to auscultation bilaterally Cardio: Rate: regular rate Rhythm: regular rhythm Heart sounds: S1 normal heart sound present and S2 normal heart sound present GI: Inspection: incision (Intact with glue) GI Palp: Yes Soft to palpation, Yes Tenderness to palpation present (GI) (Incisional), No Guarding due to palpation present (GI) and No Rebound tenderness present Auscultation: normal bowel sounds DS: Data Data Completed and Pending Pending studies at discharge: Pending at discharge 09/18/24 14:46 Surgical [PTH] Routine Labs on day of discharge: Labs from last 24 hours 09/19/24 09/18/24 05:45 13:41 WBC 12.3 H RBC 4.23 Hgb 12.7 Hct 37.5 MCV 88.7 MCH 30.0 MCHC 33.9 RDW 12.1 Plt Count 281 MPV 9.7 Sodium 134 L Potassium 4.3 Chloride 102 Carbon Dioxide 25 Anion Gap 7 BUN 7 Creatinine 0.50 L Estim Creat Clear Calc 155 Estimated GFR > 60 Glucose 110 Calcium 9.2 Blood Type O Negative Antibody Screen Negative Discharge Plan Discharge Attending physician on discharge: Chucky Fierro Discharging Clinician: Chucky Fierro Patient Disposition: Home, Self-Care Activity: other - see discharge instructions Diet: low fat Wound Care Instructions: other - see discharge instructions Discharge Instructions: DISCHARGE INSTRUCTION SHEET FOR HERNIA, GALLBLADDER AND APPENDIX SURGERIES DR. FIERRO PATIENT TO TAKE HOME 1. May shower, no soaking in bath x 2weeks. 2. Call office for: * Wound increasingly painful or bleeding * Vomiting * Fever of greater than 101 degrees 3. If no bowel movement for three days, take 1 oz. (30 ml) Milk of Magnesia or MiraLax 17g 1 to 2 times daily. 4. No heavy lifting > 10-15 pounds x weeks for hernia repairs and 2 weeks for laparoscopic cholecystectomy or appendectomy. 5. No driving for 3 days or while taking narcotic pain medications. 6. Ice to surgical site for 48 hours (30 min on, then 30 min off). 7. Up walking 10-30 minutes three times per day. 8. Resume previous home medications. 9. Follow-up 10-14 days in office for wound check or as previously scheduled. ([id number]) 10. Oral pain medications prescription to be sent to pharmacy. Take Tylenol 500mg every 6 hours and Ibuprofen 600mg every 6 hours for the first 2 days, then as needed. 11. NUTRITION: Start out by drinking fluids and increase your diet as tolerated. If you experience nausea, try dry toast, crackers, and 7-UP. If nausea or vomiting persists, contact your surgeon?s office. 12. Gallbladders-Low Fat Diet for 2 weeks (send care note of low fat diet) 13. Inguinal Hernias-wear scrotal support for 48 hours 14. Abdominal Hernias-if sent home with abdominal binder, wear for the first 2 weeks (may remove to shower or at night to sleep). Revised March 2019 Patient Instructions: Antibiotic Form, Low Fat Diet (DC) Stand Alone Forms: General Discharge Information Follow-up/Referrals: Chucky Fierro, DO [Physician] - 2 Weeks Discharge Medications: New hydrocodone-acetaminophen 5-325 mg tablet 1 tablet PO Q4H PRN (Reason: pain) Qty: 10 0RF Continued No Home Medications Date of admission: 09/18/24 00:56 Primary Care Provider: UNKNOWN,DOCTOR Admitting Provider: Chucky Fierro Attending physician on admission: Chucky Fierro Condition: Improved
[2024-09-19] MEDS: HYDROcodone/acetaminophen (*CRX) 5-325 MG TABLET 1 TAB PO (13:24)
--- NOTE | 2024-09-19 13:37 | WPDANESPN ---
Anes - Prog Note Post-Op Date/Time: 09/19/24 13:37 Cardiovascular status: normal Respiratory status: normal Airway patency: baseline Mental status: baseline Post-Op hydration status: normal Vital Signs: Last Vital Signs Temp 35.7 C L 09/19/24 10:26 Pulse 83 09/19/24 10:26 Resp 18 09/19/24 10:26 BP 117/67 09/19/24 10:26 Pulse Ox 97 09/19/24 10:26 O2 Del Method Room Air 09/19/24 09:29 O2 Flow Rate 8 09/18/24 15:50 Pain Score (VAS): 01/13 I/O: Intake & Output 09/18/24 09/19/24 09/19/24 23:59 07:59 15:59 Intake Total 652 1250 480 Balance 652 1250 480 Laboratory Tests 09/19/24 05:45 09/19/24 05:45 09/18/24 09/19/24 13:41 05:45 WBC 12.3 H RBC 4.23 Hgb 12.7 Hct 37.5 MCV 88.7 MCH 30.0 MCHC 33.9 RDW 12.1 Plt Count 281 MPV 9.7 Sodium 134 L Potassium 4.3 Chloride 102 Carbon Dioxide 25 Anion Gap 7 BUN 7 Creatinine 0.50 L Estim Creat Clear Calc 155 Estimated GFR > 60 Glucose 110 Calcium 9.2 Blood Type O Negative Antibody Screen Negative Post-procedural complaints: none Patient Feedback: Patient satisfied with anesthetic care.
[2024-09-19 13:55] VITALS: BP 124/66; PULSE 88; RESP 17; TEMP 35.5; O2SAT 99
== END 2024-09-19 14:10 | disposition home or self-care (01) ==
PROVIDERS: Admitting Provider Surgery; Visit Provider Surgery
PROC: 0FT44ZZ Resection of Gallbladder, Percutaneous Endoscopic Approach (ICD-10-PCS; CPT 47562; principal; 2024-09-18 14:30)
DX: K80.00 Calculus of gallbladder with acute cholecystitis without obstruction (principal); K82.1 Hydrops of gallbladder; F17.210 Nicotine dependence, cigarettes, uncomplicated; E66.9 Obesity, unspecified; Z68.35 Body mass index [BMI] 35.0-35.9, adult
CPT/HCPCS: 47563; S2900; 36415; 80048; 80053; 85027; 86850; 86900; 86901; 88304; A9270; G0378; G0379; J0690; J1100; J1171; J1650; J1885; J2003; J2250; J2270; J2371; J2405; J2704; J3010; J7030; J7120

== ENCOUNTER 2025-10-19 15:42 | Emergency (ER) | payer OTHER, SELFPAY ==
--- NOTE | ~2025-10-19 | XR_ITS ---
EXAMINATION: XR hand LT min 3V, 10/19/2025 16:00 GRAIN GRADER HISTORY: Lt. distal 3rd finger cellulitis x3 days, NKI. COMPARISON: No comparisons available. Findings: No acute fracture or malalignment. No significant degenerative changes. Soft tissues unremarkable. Impression: No acute fracture or malalignment. Reviewed, dictated and finalized at location P. N GRADER Impression: No acute fracture or malalignment.
--- OUTSIDE RECORDS SUMMARY | 2025-10-19 15:44 | XMS_ITS | Clinical Summary ---
Author Organization [facility] Address [address] [place] [address] Care Team Providers Care Funeral Director/Embalmer Name Role Phone Fermín Torres MD Primary Care Provider [phone] Allergies No known active allergies Medications No known medications Family History Medical History Relation Comments Diabetes Father Relation Status Comments Father Social History Tobacco Use Types Packs/Day Years Used Date Smoking Tobacco: Every Day Cigarettes Smokeless Tobacco: Never Tobacco Cessation:Ready to Q uit: Not Asked; Counseling Given: Not Answered Alcohol Use Standard Drinks/Week Comments Not Currently 0 (1 standard drink = 0.6 oz pur e alcohol) B1300 Health Literacy Answer Date Recor ded How often do you need to hav e someone help you when you read instructions, pamphlets, or other written material from your doctor or pharmacy? Never 05/12/2024 [facility] Utilities Answer Date Recorded In the past 12 months has [facility] [employer], gas, oil, or water [employer] threatened to shut off services in your home? No 05/12/2024 Humiliation, Afraid, Rape, and Kick questionnair e Answer Date Recorded Within the last year, have y ou been afraid of your partner or ex-partner? No 05/12/2024 Within the last year, have y ou been humiliated or emotionally abused in other ways by your partner or ex-partner? No Within the last year, have y ou been kicked, hit, slapped, or otherwise physically hurt by your partner or ex-partner? No 05/12/2024 Within the last year, have y ou been raped or forced to have any kind of sexual activity by your partner or ex-partner? No 05/12/2024 Social Connection and Isolation Panel Answer Date Recorded In a typical week, how many times do you talk on the phone with family, friends, or neighbors? More than three times a week 05/12/2024 How often do you get togethe r with friends or relatives? Once a week 05/12/2024 How often do you attend chur ch or temple services? Never 05/12/2024 Do you belong to any clubs o r organizations such as zoroastrian groups, unions, fraternal or athletic groups, or school groups? No 05/12/2024 How often do you attend meet ings of the clubs or organizations you belong to? Never 05/12/2024 Are you , , di vorced, , never , or living with a partner? 05/12/2024 AUDIT-C Answer Date Recorded Q1: How often do you have a drink containing alcohol? Never 05/12/2024 Q2: How many drinks containi ng alcohol do you have on a typical day when you are drinking? Patient does not drink Q3: How often do you have si x or more drinks on one occasion? Never 05/12/2024 Overall Financial Resource Strain (CARDIA) Answe r Date Recorded How hard is it for you to pa y for the very basics like food, housing, medical care, and heating? Not hard at all 05/12/2024 [facility] - Occupational Stress Questionnaire Answer Date Recorded Do you feel stress - tense, restless, nervous, or anxious, or unable to sleep at night because your mind is troubled all the time - these days? To some extent 05/12/2024 Exercise Vital Sign Answer Date Recorde d On average, how many days pe r week do you engage in moderate to strenuous exercise (like a brisk walk)? 2 days 05/12/2024 On average, how many minutes do you engage in exercise at this level? 20 min 05/12/2024 Hunger Vital Sign Answer Date Recorded Within the past 12 months, y ou worried that your food would run out before you got the money to buy more. Never true 05/12/20 24 Within the past 12 months, t he food you bought just didn't last and you didn't have money to get more. Never true 05/12/2024 PRAPARE - Transportation Answer Date Re corded In the past 12 months, has l ack of transportation kept you from medical appointments or from getting medications? No 05/2024 In the past 12 months, has l ack of transportation kept you from meetings, work, or from getting things needed for daily living? No 05/12/2024 Housing Stability Vital Sign Answer Raj e Recorded In the last 12 months, was t here a time when you were not able to pay the mortgage or rent on time? No 05/12/2024 In the past 12 months, how m any times have you moved where you were living? 2 05/12/2024 At any time in the past 12 m [facility], were you homeless or living in a retirement (including now)? No 05/12/2024 Comments No Sex and Gender Information Value Date Recorded Sex Assigned at Female 05/12/2024 6:21 AM CDT Legal Sex Female 5:59 PM [employer] Gender Identity Female 05/12/2024 6:21 AM CDT Sexual Orientation Not on file Last Filed Vital Signs Vital Sign Reading Time Taken Comments Blood Pressure 119/67 05/12/2024 6:13 AM CDT Pulse 96 05/12/2024 6:13 AM CDT Temperature 36.2 C (97.2 F) 05/12/2024 6:13 AM CDT Respiratory Rate 20 05/12/2024 6:13 AM CDT Oxygen Saturation - - Inhaled Oxygen Concentration - - Weight 93 kg (205 lb) 05/12/2024 6:03 AM CDT Height 162.6 cm (5' 4) 05/12/2024 6:03 AM CDT Body Mass Index 35.19 05/12/2024 6:03 AM CDT Plan of Treatment Health Maintenance Due Date Last Done Comments Cervical Cancer Screening Pa p Smear (Age 30 to 64) Every 3 Years 1989 Annual Physical 1992 Hepatitis C 2007 DTaP, Tdap and Td Vaccines ( 1 - Tdap) 2008 Hepatitis B Vaccines (1 of 3 - 19+ 3-dose series) 2008 Pneumococcal Vaccine: Pediat rics (0 to 5 Years) and At-Risk Patients (6 to 49 Years) (1 of 2 - PCV) 2008 HPV Vaccines (1 - 3-dose SCD M series) 2016 Cervical Cancer Screening Pa p with HPV Testing (Age 30 to 64) Every 5 Years 2019 Cervical Cancer Screening with HPV 2019 COVID-19 Vaccine (2024-2 6 season) 2025 Influenza Adult (#1) 2025 Hepatitis A Vaccines Aged Out No long er eligible based on patient's age to complete this topic Meningococcal B Vaccine Aged Out No l onger eligible based on patient's age to complete this topic Meningococcal Vaccine Aged Out No tj osmar eligible based on patient's age to complete this topic RSV Immunizations Under 20 Months Aged Out No longer eligible based on patient's age to complete this topic Insurance [employer] Care Teams Funeral Director/Embalmer Relationship Specialty Start Date End Date Fermín Torres MD [facility] [place] [id number] PCP - General FAMILY PRACTICE 05/12/24
--- OUTSIDE RECORDS SUMMARY | 2025-10-19 15:44 | XMS_ITS | Clinical Summary ---
Author Organization [facility] [address] Address [address] [place] [address] Phone Care Team Providers Care Telephone Information Clerk Name Role Phone Tomas Amaya MD Primary Care Provider [phone] Allergies No known active allergies Medications cholecalciferol (VITAMIN D-3) 2000 unit tablet Take 1 tablet (2,000 Units total) by mouth daily 30 tablet 11 01/16/2024 Active ibuprofen (ADVIL,MOTRIN) 600 mg tabletIndication s:Cramps Take 1 tablet (600 mg total) by mouth every 6 (six) hours as needed for pain 30 tablet 05/17/2024 Active citalopram (CeleXA) 20 mg tablet Take 1 tablet (20 mg total) by mouth daily 30 tablet 05/28/2024 Active Active Problems Problem Noted Date Diagnosed Date care and examination 06/18/2024 Assessment & Plan (06/18/2024 9:17 PM CDT): Doing well. Adequate sleep encouraged She was encouraged to f/u with her drug treatment. Vitamin D deficiency 11/14/2023 Positive urine drug screen 11/14/2023 Anxiety with depression 07/05/2023 Assessment & Plan (07/05/2023 2:31 PM CDT): Has been worsening, especially over the past 1-2 weeks. Currently going through divorce. Currently taking Wellbutrin and Hydroxyzine prn. Does not feel the Hydroxyzine helps so we will stop this medication. Start Lexapro 5 mg, has never been on SSRI so will start low. Education provided. Continuing the Wellbutrin. Buspar BID trial. Sterilization 04/22/2022 Assessment & Plan (06/30/2024 7:26 AM CDT): Healing well Assessment & Plan (01/16/2024 3:41 PM CDT): Will plan to do pp Assessment & Plan (04/22/2022 5:02 PM CDT): A(n) initial well visit to establish care has been performed today. Francesca Galarza is not up to date on screening tests. She is in need of Cervical cancer screening- getting outside records. She is not up to date on needed preventative vaccinations; She is in need of Tdap/Td, Pneumonia (Prevnar-13 or Pneumovax-23) and Varicella. 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 Overview (09/18/2023): Matern care for oth or susp poor fetl grth, third tri, unsp;Recorded Elsewhere: No Location: [facility] Source: EHR Chronic: N Practice ID: [id number] Billable Time: 08:15:00 AM Obesity with body mass index 30 or greater 08/30 Gastroesophageal reflux disease 03/22/2014 Overview (02/10/2017): GERD (gastroesophageal reflux disease) Migraine 03/22/2014 Overview (02/10/2017): Migraine ADHD (attention deficit hyperactivity disorder) 11/06/1997 Overview (05/19/2022): TOOK medication from 4th to 8th grade, then refused to take it since Resolved Problems Problem Noted Date Diagnosed Date Resolved Date Term 05/14/2024 05/28/2024 Rh negative state in antepartum period 01/16/2024 05/28/2024 Encounter for supervision of normal in first trimester 11/09/2023 05/28/2024 Overview (01/15/2024): 11/22/23- cell free dna is negative. Declined carrier screening 01/15/24-incomplete anatomy scan: Face lips and profile Class 1 obesity due to exces s calories without serious comorbidity with body mass index (BMI) of 32.0 to 32.9 in adult 04/22/202207/2024 Assessment & Plan (07/05/2023 2:26 PM CDT): Healthy, low carbohydrate lifestyle and exercise for 150min/week recommended Assessment & Plan (04/22/2022 5:03 PM CDT): BMI Follow-up includes: nutrition counseling, exercise counseling and education provided. Transitory mood disturbance 07/25/2018 11/09/2023 Overview (09/18/2023): mood disturbance;Recorded Elsewhere: No Location: [facility] Source: EHR Chronic: N Practice ID: [id number] Billable Time: 02:30:00 PM Abnormal lochia 07/02/2018 11/09/2023 Overview (09/18/2023): Encounter for routine follow-up;Recorded Elsewhere: No Location: [facility] Source: EHR Chronic: N Practice ID: [id number] Billable Time: 02:30:00 PM Term delivered 04/06/201802/2024 Overview (09/18/2023): Encounter for full-term uncomplicated delivery;Practice ID: [id number] Secondary amenorrhea 08/30/2017 024 Overview (09/18/2023): Secondary amenorrhea;Recorded Elsewhere: No Location: [facility] Source: EHR Chronic: N Practice ID: [id number] Billable Time: 03:15:00 PM History of mental disorder 03/22/2014 0 06/13/2017 Overview (02/10/2017): History of ADHD Hyperlipidemia 03/22/2014 06/13/2017 Overview (02/10/2017): Hyperlipidemia Abnormal cytology findings 03/04/2011 0 06/13/2017 Overview (02/10/2017): Abnormal Pap smear Immunizations Immunization Administration Dates Next Due HPV, Quadrivalent 08/07/2007,04/06/2007,02/07/20 07 Hep B Vaccine 1989,1989,1989 Influenza, Unspecified 07/05/2023(Deferr ed: Patient Refused),11/06/2022(Deferred: Patient Refused),11/06/2021(Deferred: Patient Refused),11/06/2020(Deferred: Patient Refused) MMR 06/06/1994,08/04/1990 Rho (D) Immune Globulin, IV or IM 04/06/2018,03/2018 Tdap 05/14/2024,02/06/2007 Surgical History Surgery Date Site/Laterality Comments TYMPANOSTOMY TUBE PLACEMENT 11/06/1990 - 11/05/1991 KNEE ARTHROSCOPY 11/06/2004 - 11/05/2005 Right GANGLION CYST EXCISION 11/06/1994 - 11/05/1995 CERVICAL BIOPSY W/ LOOP ELECTRODE EXCISION 11/06/2009 - 11/05/2010 HAM III, 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 Medical History Medical History Date Comments History of chronic ear infection 1990 ADHD (attention deficit hype ractivity disorder) 1998 TOOK medication from 4th to 8th grade, then refused to take it since Chlamydia 2009 Abnormal Pap smear of cervix 2014 LGS [place] Abnormal Pap smear of cervix 2009 HAM III, 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 Migraine headache Family History Medical History Relation Name Comments Diabetes Father Heart attack Father Lung cancer Maternal Grandfather COD Hqvs-Otmcw-Iphwtgx disease Mother Breast cancer Mother's Sister Hypertension Paternal Grandfather No Known Problems Sister Relation Name Status Comments Father Alive Maternal Grandfather Maternal Grandmother Mother Alive Mother's Sister Alive Paternal Grandfather Paternal Grandmother Alive Sister Alive Social History Tobacco Use Types Packs/Day Years Used Date Smoking Tobacco: Every Day Cigarettes 0.5 20 Started: 2005 Smokeless Tobacco: Never Tobacco Cessation:Ready to Q uit: No; Counseling Given: Yes Comments:Smoking History Packs/day: 1/2 Packs Alcohol Use Standard Drinks/Week Comments Yes 0 (1 standard drink = 0.6 oz pur e alcohol) beer/vodka weekly [facility] Utilities Answer Date Recorded In the past 12 months has e [employer], gas, oil, or water [employer] threatened to shut off services in your home? No 05/15/2024 Humiliation, Afraid, Rape, and Kick questionnair e Answer Date Recorded Within the last year, have y ou been afraid of your partner or ex-partner? No 05/15/2024 Within the last year, have y ou been humiliated or emotionally abused in other ways by your partner or ex-partner? No Within the last year, have y ou been kicked, hit, slapped, or otherwise physically hurt by your partner or ex-partner? No 05/15/2024 Within the last year, have y ou been raped or forced to have any kind of sexual activity by your partner or ex-partner? No 05/15/2024 Social Connection and Isolation Panel Answer Date Recorded In a typical week, how many times do you talk on the phone with family, friends, or neighbors? More than three times a week 05/15/2024 How often do you get togethe r with friends or relatives? Once a week 05/15/2024 How often do you attend chur ch or advent services? Never 05/15/2024 Do you belong to any clubs o r organizations such as lutheran groups, unions, fraternal or athletic groups, or school groups? No 05/15/2024 How often do you attend meet ings of the clubs or organizations you belong to? Never 05/15/2024 Are you , , di vorced, , never , or living with a partner? 05/15/2024 AUDIT-C Answer Date Recorded Q1: How often do you have a drink containing alcohol? Never 05/15/2024 Q2: How many drinks containi ng alcohol do you have on a typical day when you are drinking? Patient does not drink Q3: How often do you have si x or more drinks on one occasion? Never 05/15/2024 Overall Financial Resource Strain (CARDIA) Answe r Date Recorded How hard is it for you to pa y for the very basics like food, housing, medical care, and heating? Not hard at all 05/15/2024 PHQ-2 Answer Date Recorded PHQ-2 Total Score 0 05/15/2024 [facility] Occupational Stress Questionnaire Answer Date Recorded Do you feel stress - tense, restless, nervous, or anxious, or unable to sleep at night because your mind is troubled all the time - these days? To some extent 05/15/2024 Exercise Vital Sign Answer Date Recorde d On average, how many days pe r week do you engage in moderate to strenuous exercise (like a brisk walk)? 0 days 05/15/2024 On average, how many minutes do you engage in exercise at this level? 0 min 05/15/2024 Hunger Vital Sign Answer Date Recorded Within the past 12 months, y ou worried that your food would run out before you got the money to buy more. Never true 05/15/20 24 Within the past 12 months, t he food you bought just didn't last and you didn't have money to get more. Never true 05/15/2024 PRAPARE - Transportation Answer Date Re corded In the past 12 months, has l ack of transportation kept you from medical appointments or from getting medications? No 05/06 In the past 12 months, has l ack of transportation kept you from meetings, work, or from getting things needed for daily living? No 05/15/2024 [place] Depression Scale Answer Date Recorded [place] Depression Scale Total 23 05/28/2024 The thought of harming myself has occurred to me . Never 05/28/2024 PHQ-9 Answer Date Recorded PHQ-9 Total Score 6 05/14/2024 Housing Stability Vital Sign Answer Raj e Recorded In the last 12 months, was t here a time when you were not able to pay the mortgage or rent on time? No 05/15/2024 In the past 12 months, how m any times have you moved where you were living? 1 05/15/2024 At any time in the past 12 m ont, were you homeless or living in a care home (including now)? No 05/15/2024 Personal Safety Answer Date Recorded Have you ever been in or are you currently in a harmful physical or emotional relationship or is someone making you feel afraid or unsafe? 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 on file Not on file Not on file [employer] Not on file Not on file Not on file Obstetrics History Para Term AB IAB SAB Ectopic Multiple Livin g Live Births 4 3 3 0 1 0 1 0 0 3 3 Date Outcome GA Total Labor Labor/2nd/3rd Weight Sex Type Anes PTL Jennifer A1 A5 Name Clin 2015 Term M Vag-Sp ont Epidur al Livin g Complications:None 2018 Term F Vag-Sp ont Epidur al Livin g Complications:None 0 SAB 2023 Term 40w 1d 6h 50m 6h 41m/0h 08m/0h 01m 3.113 kg (6 lb 13.8 oz) M Vagina l Epidur al N Livin g 9 9 Chepe arana, Hernan felipe MD Complications:None Delivery Location:[facility] Fac[facility] ([facility]) Comments No htn or dm. Last Filed Vital Signs Vital Sign Reading Time Taken Comments Blood Pressure 110/68 05/28/2024 11:59 AM CDT Pulse 68 05/17/2024 12:25 PM CDT Temperature 36.6 C (97.9 F) 05/17/2024 12:25 PM CDT Respiratory Rate 18 05/17/2024 12:25 PM CDT Oxygen Saturation 100% 05/17/2024 12:25 PM CDT Inhaled Oxygen Concentration - - Weight 87.1 kg (192 lb) 05/28/2024 11:59 AM CDT Height 165.1 cm (5' 5) 05/14/2024 10:46 AM CDT Body Mass Index 31.95 05/14/2024 10:46 AM CDT Plan of Treatment Health Maintenance Due Date Last Done Comments Varicella Vaccines (1 of 2 - 13+ 2-dose series) 2002 Pneumococcal vaccine <65 (1 of 2 - PCV) 2008 Cervical Cancer Screening 10/11/20172015, 10/11/2016, 08/07/2013 Regular Well Visit/Exam 18-64 04/20/2023 04/20/2022 Cervical Cancer Screening-Pa p and HPV 09/26/2023 10/11/2016, 10/11/2016, 08/07/2013 Depression Screening 05/28/2025 05/28/2024, 05/15/2024, 05/14/2024, Additional history exists Influenza Vaccine (#1) 2025 DTaP/Tdap/Td Vaccine (3 - Td or Tdap) 05/14/2034 05/14/2024, 02/06/2007 Hepatitis B Screening Completed 1989 , 1989, 1989 HPV Vaccines Completed 08/07/2007, 11/2006, 02/06/2007 Hepatitis C Screening Completed 11/09/2023, 014 Procedures Procedure Name Priority Date/Time Associated Diagnosis Comments HEPATITIS C ANTIBODY Routine 11/09/2023 2:33 PM [employer] 13 weeks gestation of THINPREP TIS PAP REFLEX HPV MRNA E6/E7, CHLAMYDIA/N.GONORRH OEAE Routine 10/11/2016 1:49 PM [employer] from Last 3 Months or Most Recently Relevant to Health Maintenance Results * Hepatitis C antibody Blood (11/09/2023 2:33 PM [employer]) Hep C Ab Nonreactive Nonreactive REGGIE REYNOSO Comment: Interpretive Data Nonreactive: Antibodies to HCV not detected. Does NOT exclude the possibility of recent exposure to HCV. Equivocal: Equivocal for HCV antibodies. Supplemental molecular testing will be automatically performed to determine infection status in accordance with current CDC screening recommendations. Reactive: Positive for HCV antibodies. This may represent current or past HCV infection. Supplemental molecular testing will be automatically performed to determine current infection status in accordance with current CDC screening recommendations. Interpretive data was last revised on 2020. Blood 11/09/2023 2:33 PM [employer] 11/09/2023 9:47 PM [employer] Brunilda Bustillos NP LAB MICROBIOLOGY - GENERAL ORDER DANETTE Final Result Performing Organization Address City/[facility] Co de Phone Number REGGIE [phone] [address] Department [place] [address] * THINPREP TIS PAP REFLEX HPV mRNA E6/E7, CHLAMYDIA/N.GONORRHOEAE (10/11/2016 1:49 PM [employer]) SOURCE: SEE NOTE [facility] HISTORICAL RESULTS Comment:Cervix, Endocervix CLINICAL INFORMATION: SEE NOTE [facility] HISTORICAL RESULTS Comment:Information not prov ided LMP SEE NOTE [facility] HISTORICAL RESULTS Comment:10/03/16 Previous Pap SEE NOTE [facility] HISTORICAL RESULTS Comment:NONE GIVEN Prev. Bx SEE NOTE [facility] HISTORICAL RESULTS Comment:NONE GIVEN Pap, specimen adequacy SEE NOTE [facility]ISTORICAL RESULTS Comment: Satisfactory for evaluation. Endocervical/transformation zone component present. HPV interp SEE NOTE [facility] HISTORICAL RESULTS Comment:Negative for intraep ithelial lesion or malignancy. Lactobacillus species SEE NOTE [facility] HISTORICAL RESULTS Comment: This Pap test has been evaluated with computer assisted technology. Multimedia Producer SEE NOTE [facility] HISTORICAL RESULTS Comment: JOSE, CT(ASCP) CT screening location: [place] [address] [place] [address] Test performed at [facility] [address] Director: MARIELA LU MD 10/11/2016 1:49 PM [employer] us Fadumo Lopez MD LAB PATHOLOGY ORDER DANETTE Final Result Performing Organization Address [facility] Co de Phone Number [facility] HISTORICAL RESULTS from Last 3 Months or Most Recently Relevant to Health Maintenance Insurance [facility] Advance Directives For more information, please contact: [phone] * Full Code (Latest Code Status on File) Date Activated Date Inactivated Comments 05/15/2024 1:58 AM 05/18/2024 2:30 AM * Full Code Date Activated Date Inactivated Comments 05/14/2024 10:57 AM 05/15/2024 1:58 AM Full CPR in case of cardiopulmonary arrest Care Teams Telephone Information Clerk Relationship Specialty Start Date End Date Tomas Amaya MD [address] [place] [address] PCP - General Family Medicine 04/20/22
--- OUTSIDE RECORDS SUMMARY | 2025-10-19 15:44 | XMS_ITS | Data Portability ---
Author Organization [facility], [facility], [facility] Address [address] [place] [address] [place] [address] Assessment Encounter Date Assessment Date Assessment LastModified by Organization Details LastModified Time 11/05/2020 11/05/2020 hcg neg discussed contraceptive options- wants to try patch. discussed RBA and usage. will start with menses. will start prozac for anxiety/depressi on. Precautions given increase iron to BID, add colace FU 1 mo WWE and med check. [email or web address] Not available 11/05/2020 11:20:17 Plan of Treatment Reminders Order Date Submit Date Provider Last Modified By Organization Details Last Modified Time Details Appointments None recorded. Lab test, urine 2019 020 [email or web address] [facility], [address], [place], [address], 0 11:13:16 Referral None recorded. Procedures None recorded. Surgeries None recorded. Imaging None recorded. Medication Orders Xulane 150 mcg-35 mcg/24 hr transderma l patch 2019 020 INTERFACE [id number], [address], [place], [id number], 0 10:56:08 Prozac 20 mg capsule 2019 020 INTERFACE [facility] #[id number], [address] [place], [place], [id number], 0 10:56:09 Patient TargetsNo targets recorded. Patient InstructionsNo instructions recorded. Reason for Referral None Reported. Results Created Date Observation Date Name Description Value Unit Range Abnormal Flag Note LastModifiedBy Organization Detail LastModifiedTime 11/05/20 20 11/05/2020 pregn franchesca test, urine HCG negati ve Not Available [facility] [address], [place], [address], 11/05/2020 10:42:16 11/05/20 20 11/05/2020 pregn franchesca test, urine HCG negati ve Not Available [facility] [address], [place], [address], 11/05/2020 10:41:42 11/09/19 21 US, obste tric No observ ation record ed. [email or web address] Not Available 2020 10:46:09 Result Notes None recorded. Problems Name Problem SNOMED Code Status Onset Date Resolution Date Notes Provider Name and Address Organization Details Recorded Time SNOMED CT Concept Completed 201611/05/2020 Encntr for bread panner exam (general ) (routine ) w/o abn findings ;Recorde d Elsewher e: No Locat ion: [facility] S ource: EHR Tobacco Sample Puller kaitlin: N Shelly ce ID: 0001 Jordon lable Time: 03:15:00 PM Milena Avitia MD [address], [place], [address], [place] [facility] 0 10:45:59 Body mass index 30+ - obesity 797590866 Active 2016 Body mass index (BMI) 36.0-36. 9, adult;Re corded Elsewher e: No Locat ion: [facility] S ource: EHR Tobacco Sample Puller kaitlin: N Practi ce ID: 0001 Jordon lable Time: 03:15:00 PM Not Available [facility] 0 15:40:46 Secondar y amenorrh ea [id number] Completed 201611/05/2020 Secondar y amenorrh ea;Recor ded Elsewher e: No Locat ion: [facility] S ource: EHR Tobacco Sample Puller kaitlin: Jaime Bravo ce ID: 0001 Jordon lable Time: 03:15:00 PM Milena Avitia MD [address], [place], [address], [facility] 0 10:45:52 Pregnanc y detectio n examinat ion Completed 201611/05/2020 Encounte r for pregnanc y test, result positive ;Recorde d Elsewher e: No Locat ion: [facility] S ource: EHR Tobacco Sample Puller kaitlin: N Shelly ce ID: 0001 Jordon lable Time: 03:15:00 PM Milena Avitia MD [address], [place], [address], [facility] 0 10:45:50 Normal pregnanc y in multigra krissy [id number] 46036 Completed 201611/05/2020 Encounte r for supervis ion of other normal pregnanc y, first trimeste r;Record ed Elsewher e: No Locat ion: [facility] S ource: EHR Tobacco Sample Puller kaitlin: Jaime Bravo ce ID: 0001 Jordon lable Time: 05:00:00 PM Milena Avitia MD [address], [place], [address], [facility] 0 10:45:48 Antenata l screenin g for malforma tion Completed 201711/05/2020 Encounte r for antenata l screenin g for malforma tions;Re corded Elsewher e: No Locat ion: [facility] S ource: EHR Tobacco Sample Puller kaitlin: N Shelly ce ID: 0001 Jordon lable Time: 09:00:00 AM Milena Avitia MD [address], [place], [address], [facility] 0 10:45:25 Antenata l screenin g Completed 201711/05/2020 Encounte r for other antenata l screenin g follow-u p;Record ed Elsewher e: No Locat ion: [facility] S ource: EHR Tobacco Sample Puller kaitlin: N Practi ce ID: 0001 Jordon lable Time: 09:00:00 AM MD [address], [place], [address], [facility] [address] 10:45:[address] Concept Completed 201711/05/2020 Matern care for abnlt fetl hrt rate or rhym, 3rd tri, unsp;Rec orded Elsewher e: No Locat ion: [facility] S ource: EHR Tobacco Sample Puller kaitlin: N Practi ce ID: 0001 Jordon lable Time: 11:30:00 AM Milena Avitia MD [address], [place], [address], [facility] 0 10:45:57 finding Completed 201711/05/2020 Matern care for oth or susp poor fetl grth, third tri, unsp;Rec orded Elsewher e: No Locat ion: [facility] S ource: EHR Tobacco Sample Puller kaitlin: N Practi ce ID: 0001 Jordon lable Time: 08:15:00 AM MD [address], [place], [address], [facility] 0 10:45:34 Gestatio n period, 28 weeks [id number] Completed 201711/05/2020 28 weeks gestatio n of pregnanc y;Record ed Elsewher e: No Locat ion: [facility] S ource: EHR Tobacco Sample Puller kaitlin: N Practi ce ID: 0001 Jordon lable Time: 08:15:00 AM MD [address], [place], [address], [facility] 0 10:45:37 Gestatio n period, 34 weeks [id number] Completed 201711/05/2020 34 weeks gestatio n of pregnanc y;Record ed Elsewher e: No Locat ion: [facility] S ource: EHR Tobacco Sample Puller kaitlin: N Practi ce ID: 0001 Jordon lable Time: 11:00:00 AM MD [address], [place], [address], [facility] 0 10:45:40 Term pregnanc y delivere d [id number] Completed 201711/05/2020 Encounte r for full-ter m uncompli cated delivery ;Practic e ID: 0001 Milena Avitia MD [address], [place], [address], [facility] 0 10:46:01 Single live from singleto n pregnanc y [id number] Completed 201711/05/2020 Single live ;Pr actice ID: 0001 Milena Avitia MD [address], [place], [address], [facility] 0 10:45:55 Gestatio n period, 39 weeks [id number] Completed 201711/05/2020 39 weeks gestatio n of pregnanc y;Practi ce ID: 0001 Milena Avitia MD [address], [place], [address], [facility] 0 10:45:43 Lochia finding Completed 201711/05/2020 Encounte r for routine postpart um follow-u p;Record ed Elsewher e: No Locat ion: [facility] S ource: EHR Tobacco Sample Puller kaitlin: N Practi ce ID: 0001 Jordon lable Time: 02:30:00 PM MD [address], [place], [address], [facility] 0 10:45:45 Jania ry postpart um mood disturba nce [id number] Completed 201711/05/2020 Postpart um mood disturba nce;Vahid rded Elsewher e: No Locat ion: [facility] S ource: EHR Tobacco Sample Puller kaitlin: N Baileyti ce ID: 0001 Jordon lable Time: 02:30:00 PM Milena Avitia MD [address], [place], [address], [facility] 0 10:46:05 Emotiona l state finding Completed 201711/05/2020 Anxiety depressi on;Recor ded Elsewher e: No Locat ion: [facility] S ource: EHR Tobacco Sample Puller kaitlin: N Practi ce ID: 0001 Jordon lable Time: 10:15:00 AM Milena Avitia MD [address], [place], [address], [facility] 0 10:45:32 Finding of tobacco use and exposure Active 2017 Tobacco use;Vahid rded Elsewher e: No Locat ion: [facility] S ource: EHR Tobacco Sample Puller kaitlin: N Baileyti ce ID: 0001 Jordon lable Time: 08:30:00 AM Not Available [facility] 0 15:40:46 Notes:Puerperal psychosis Pr actice ID: [id number] Problem Notes None recorded. Procedures Surgical History Date Name Laterality Status Provider Name and Address Organization Details Recorded Time 0 Dilation and Curettage completed Tamy Lewis [facility] 11/03/2020 09:16:57 Imaging Results None recorded. Procedure Notes None recorded. Medical Equipment None Reported. Allergies No known drug allergies Medications Name Sig Start Date Stop Date Status Note LastModified by Organization Details LastModified Time amoxicill in 500 mg capsule TK 1 C PO TID TAT active Not Available Not Available No t Available hydrocodo ne 5 mg-acetam inophen 325 mg tablet TK 1 TO 2 TS PO Q 6 H PRN P active Not Available Not Available No t Available Compazine 10 mg tablet take 1 tablet by oral route 3 times every day 09/13 completed Prescrib ed Elsewher e: No Locat ion: [facility] odify By: shaunna Tejada r DateTime : 12/26/19 18 09:30:00 AM Not Available Not Available Not Available Excedrin Migraine 250 mg-250 mg-65 mg tablet 11/05 completed Prescrib ed Elsewher e: Yes Loca tion: [facility] odify By: [email or web address] Encounashlyn r DateTime : 08/30/20 17 03:15:00 PM Not Available Not Available Not Available penicilli n V potassium 500 mg tablet TK 1 T PO Q 6 H active Not Available Not Available No t Available Zoloft 50 mg tablet take 1 tablet by oral route every day 09/13 completed Prescrib ed Elsewher e: No Locat ion: [facility] odify By: shaunna Encounashlyn r DateTime : 07/02/20 18 02:30:00 PM Not Available Not Available Not Available fluoxetin e 20 mg capsule TAKE 1 CAPSULE BY MOUTH EVERY DAY active Not Available Not Available No t Available NuvaRing 0.12 mg-0.015 mg/24 hr vaginal insert 1 vaginal ring by vaginal route every month leave in place for 3 weeks, remove for 1 week 11/05 completed Prescrib ed Elsewher e: No Locat ion: [facility] odify By: [email or web address] Encounte r DateTime : 10/08/20 18 08:30:00 AM Not Available Not Available Not Available Lexapro 10 mg tablet take 1 tablet by oral route every day 11/05 completed Prescrib ed Elsewher e: No Locat ion: [facility] odify By: [email or web address] Encounte r DateTime : 09/13/20 18 10:15:00 AM Not Available Not Available Not Available Fioricet 50 mg-300 mg-40 mg capsule take 1 - 2 capsule by oral route every 4 hours as needed not to exceed 6 capsules per 24hrs 09/13 completed Prescrib ed Elsewher e: No Locat ion: [facility] odify By: shaunna Encounashlyn r DateTime : 11/27/19 18 10:30:00 AM Not Available Not Available Not Available Xulane 150 mcg-35 mcg/24 hr transderm al patch APPLY 1 PATCH EXTERNAL LY TO THE SKIN EVERY WEEK 2020 active Not Available Not Available Not Avai lable Vitals None Recorded Social History None recorded. Functional Status None recorded. Mental Status None recorded. Family History Nothing Reported Notes:Father: Heart disease, Diabetes mellitus Medical History Condition Response Allergies (Food, seasonal, environmental ) N Other N Breast Cancer N Drug/Latex Allergies/Reactions N Blood Transfusion N Dermatologic Disorders N Lung Disease N Defects or Inherited Disease N Breast Problem N Gestational Diabetes N Hematologic disorders N Anesthesia Complications N History of STI N Deep Vein Thrombosis N Polycystic ovary syndrome N Anxiety Disorder N Autoimmune disease N Arthritis N Infertility N Polyps N Acid Reflux (GERD) N History of abnormal pap N Cancer N Stroke N Varicosities N Neurologic/Epilepsy N Endometriosis N High Cholesterol N Headaches N Fibromyalgia N Kidney Disease N Heart Problems N Kidney or Bladder Problems N Thyroid Problems N GI Problems N Eating Disorder N Anemia N Art (IVF or FET) N Psychiatric Illness N Ovarian Cancer N Diabetes N Pulmonary (TB, Asthma) N Hepatitis/Liver Disease N Eczema N Urinary Tract Infection N Abuse/Domestic Violence N Asthma N Trauma/Violence N Depression/ depression N Heart Disease N Pre-Eclampsia N Hypertension N Osteoporosis N Thrombophilias N Gynecological History Statement/Question Response Current Control Method None Obstetrics History GPAL:G 0 P 0 0 0 0 Past Encounters Encounter ID Performer Location Encounter Start Date Encounter Closed Date Diagnosis/Indication Diagnosis SNOMED-CT Code Diagnosis ICD10 Code Diagnosis IMO Codes Diagnosis Note [id number] Milena Avitia MD [facility] [address] [address] 11/05/2020 10:29:22 11/05/2020 11:25:44 test negative 346951063 Z32.02 Postoperative visit 1836 13035 Z09 Complete miscarriage 156 930206 O03.9 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 Contracept ion care management 593871404 Z30.9 Health Concerns Section Related Observation LastModified by Organization Detai ls LastModified Time None Recorded Concern Status LastModified by Organization Details LastModified Time None Recorded Advance Directives Directive None Recorded Payers Insurance Date Sequence Insurance Name Policy Number Policy Díaz Covered Member ID Díaz Member ID Guarantor Name 11/20/2020 1 [facility] [id number] Michael Galarza [id number] Francesca Galarza Notes Date Note Type Note Provider Name and Address Organization Details Recorded Time 11/05/2020 text/html Pt is a 30yo here for a postoperative visit. She underwent a D and C on 10/28 for incomplete ab, heavy bleeding. She is recovering well. Pain none. Bleeding very light. Taking iron daily, still fatigued and gets winded easily. Concerns: has history of depression and anxiety, no meds currently, but feels like anxiety is becoming an issue last month. would like to restart medication. denies SI/HI. Does want BC. Milena Avitia MD [address], [place], [address], [facility] 11/05/2020 11:20:36 OBGyn Episode Ob Episode Information Episode Created Date Number of Fetuses Patient Bloodtype Patient rh Status Prepregnancy Weight lbs Domestic Partner Domestic Partner Phone Father Name Director Of [employer] Applications Status 11/05/20 20 1 CLOSED Fetus Data First Name Last Name Admitted to NICU Weight (g) Sex Living Outcome Pediatric Complications Fetus ID Race Codes Race Delivery Type [id number] Vaginal Delivery Camron Calculation Initial Camron Date Initial Exam Date Initial Exam Provider Initial Ultrasound Date Last Menstrual Period Date Ultra Sound Weeks Gestation 0 Eighteen To Twenty Week Camron Update Ultra Sound Date Fundal Height At Umbil Quickening Date Ultra Sound Latest Weeks Gestation Final Camron Confirmed By Final Camron Confirmed Date Final Camron Date Ultra Sound Latest Days Gestation 0 0 Menstrual History Last Menstrual Date Menses Monthly On Bcp Conception Prior Menses Frequency Hcg Plus Date Menarche Onset Age Delivery Information Delivery Date Delivery Type Labor Anesthesia Weeks Gestation Incision Type Labor Labor Length Hrs Delivered By Post Complications Tubal Sterilization Discharge Date Comments 5 Discharge Information Feeding Method Contraceptive Method Maternal HG B and HCT Levels Ob Episode Information Episode Created Date Number of Fetuses Patient Bloodtype Patient rh Status Prepregnancy Weight lbs Domestic Partner Domestic Partner Phone Father Name Director Of [employer] Applications Status 11/05/20 20 1 CLOSED Fetus Data First Name Last Name Admitted to NICU Weight (g) Sex Living Outcome Pediatric Complications Fetus ID Race Codes Race Delivery Type [id number] Vaginal Delivery Camron Calculation Initial Camron Date Initial Exam Date Initial Exam Provider Initial Ultrasound Date Last Menstrual Period Date Ultra Sound Weeks Gestation 0 Eighteen To Twenty Week Camron Update Ultra Sound Date Fundal Height At Umbil Quickening Date Ultra Sound Latest Weeks Gestation Final Camron Confirmed By Final Camron Confirmed Date Final Camron Date Ultra Sound Latest Days Gestation 0 0 Menstrual History Last Menstrual Date Menses Monthly On Bcp Conception Prior Menses Frequency Hcg Plus Date Menarche Onset Age Delivery Information Delivery Date Delivery Type Labor Anesthesia Weeks Gestation Incision Type Labor Labor Length Hrs Delivered By Post Complications Tubal Sterilization Discharge Date Comments 8 Discharge Information Feeding Method Contraceptive Method Maternal HG B and HCT Levels
[2025-10-19 15:45] VITALS: BP 126/69; PULSE 80; RESP 16; TEMP 36.6; O2SAT 99
--- NOTE | 2025-10-19 15:49 | ED_ITS ---
HPI - Skin/Abscess/Foreign Bdy General Chief complaint: Skin/Abscess/Foreign Body Stated complaint: finger wound Time Seen by Provider: 10/19/25 15:47 Source: patient Mode of arrival: ambulatory Limitations: no limitations History of Present Illness HPI narrative: 35-year-old female with a history of smoking, anxiety, OCD presents to the ED with a 3 day history of --left finger tip swelling/redness and pain. She has a 0.5 cm depressed spot. She has pus coming out. Patient does not remember any history of trauma, insect bite or sharp object penetration. No fever or chills. No red streaks running up her arm. No axillary pain. MD complaint: other (Left hand middle finger distal finger swelling.) Onset (ago): day(s) (Two days) Tetanus up to date: no Severity: moderate Pain Consistency: constant Relieving factors: none Exacerbating factors: none Associated symptoms: denies other symptoms Treatments prior to arrival: none Related Data Allergies Allergy/AdvReac Type Severity Reaction Status Date / Time No Known Drug Allergies Allergy Unknown Unknown Verified 10/19/25 15:52 Review of Systems 2 Review of Systems: All systems reviewed & are unremarkable except as noted in HPI and below PMFSH Past Medical History Medical History Obesity Surgical History Surgical History History of bilateral salpingectomy Family History Family History Father Acute myocardial infarction Cerebrovascular accident Diabetes mellitus Social History Social History Smoking packs per day: 0.5 Smoking cigarettes per day: 10.0 Smoking status: Current every day smoker Tobacco type: cigarettes Alcohol intake: never Substance use: never Lack of Transportation: No Lack of Food: Never True Current Housing: I Have Housing Concerned About Future Housing: No Difficulty Paying Gas/Electric Bills: No Difficulty Paying for Meds: No Currently Unemployed: No Education: High School Diploma/GED Difficulty w/ Childcare or Family Care: No Living arrangements: with family Gender identity (if verbalized by the patient): Female Spiritual care concerns: No Exam 2 Narrative: Vitals are stable. Afebrile Const: General: no acute distress Orientation/consciousness: patient oriented x3 Limitations: no limitations HENMT: Head: normal to inspection Ears: external ears normal F speedy/Nose/Sinus: Normal external nose present Face and sinus: normal facial exam Mouth: Yes Normal oral and palatal mucosa present Throat: posterior oropharynx normal Eyes: Conjunctivae: conjunctivae normal Pupils: Equal, round and reactive pupils present EOM: EOMs intact bilaterally Direct Ophthalmoscopy: no photophobia Neck: Neck: normal visual inspection, no lymphadenopathy and no meningeal signs Chest: Chest palpation & inspection: normal inspection of the chest Resp: Effort & Inspection: normal respiratory effort Auscultation: d iminished lung sounds Cardio: Rate: regular rate Rhythm: regular rhythm GI: GI Palp: Yes Soft to palpation Auscultation: normal bowel sounds O ther: No tenderness/rigidity/rebound. Back/Spine/Pelvis: Back: no CVA tenderness Skin: Other: Left knee middle finger distal phalangeal soft tissue swelling with a 0.5 cm depressed spot. Normal range of motion of the D IP and the PIP. Neuro: General: patient oriented x3 Cranial nerves: Yes Nystagmus not present Speech: normal speech Gait exam (Neuro): Normal gait present Extrem: General: normal to inspection (Left hand middle finger distal phalanx cellulitis of the palmar aspect ) Psych: Mental Status: mental status grossly normal Affect: normal affect Attitude: cooperative Course Course Emergency Course: Left hand middle finger cellulitis--patient is afebrile. Normal white cell count. X-ray did not show any soft tissue foreign body. Will treat her with Augmentin. Patient has been cultured will advise her to follow-up with her primary care physician for culture results. Vital Signs Vital signs: Vital Signs Temperature 36.6 C 10/19/25 15:45 Pulse Rate 80 10/19/25 15:45 Respiratory Rate 16 10/19/25 15:45 Blood Pressure 126/69 10/19/25 15:45 Pulse Oximetry 99 10/19/25 15:45 Oxygen Delivery Room Air 10/19/25 15:45 Temperature 36.6 C 10/19/25 15:45 Pulse Rate 80 10/19/25 15:45 Respiratory Rate 16 10/19/25 15:45 Blood Pressure 126/69 10/19/25 15:45 Pulse Oximetry 99 10/19/25 15:45 Oxygen Delivery Room Air 10/19/25 15:45 [facility] Narrative Medical decision making narrative: Finger cellulitis Differential Diagnosis Differential Diagnosis: Herpetic christopher Lab Data [facility] Lab Attestation statement: I personally reviewed the patient's lab results. 10/19/25 15:53 10/19/25 15:53 Labs: Lab Results 10/19/25 10/19/25 Range/Units 15:53 16:12 WBC 7.5 (4.8-10.8) K/mm3 RBC 4.74 (4.20-5.40) M/mm3 Hgb 13.8 (12.0-15.0) g/dL Hct 42.4 (35.0-49.0) % MCV 89.5 (78.0-102.0) fL MCH 29.1 (27.0-31.0) pg MCHC 32.5 (32-36) g/dL RDW 12.2 (11.6-14.4) % Plt Count 326 (150-420) K/mm3 MPV 9.2 (9.2-11.8) fl Immature Gran % (Auto) 0.8 H (0.0-0.0) % Neut % (Auto) 69.3 (50.0-70.0) % Lymph % (Auto) 21.3 (18.0-42.0) % [place] % (Auto) 6.6 (2.0-11.0) % Eos % (Auto) 1.6 (1.0-6.0) % Baso % (Auto) 0.4 (0.0-1.0) % Lymph # (Auto) 1.59 (1.10-4.50) K/mm3 [place] # (Auto) 0.49 (0.10-0.90) K/mm3 Eos # (Auto) 0.12 (0.02-0.50) K/mm3 Baso # (Auto) 0.03 (0.00-0.10) K/mm3 Abs Immat Gran (auto) 0.06 H (0.00-0.00) K/mm3 Absolute Neuts (auto) 5.17 (1.70-7.20) K/mm3 Absolute Nucleated RBC 0.00 (0.00-0.00) K/mm3 Nucleated RBC % 0.0 (0-0.0) % Sodium 138 (137-145) mmol/L Potassium 3.8 (3.4-5.0) mmol/L Chloride 103 (98-107) mmol/L Carbon Dioxide 26 (22-30) mmol/L Anion Gap 9 (4-12) mmol/L BUN 11 (7-17) mg/dL Creatinine 0.88 (0.7-1.0) mg/dL Estim Creat Clear Calc 94 ml/min Estimated GFR > 60 (59 - ) Glucose 118 H (65-110) mg/dL Calculated Osmolality 286 (285-295) mOsm/kg Lactic Acid 1.0 (0.7-2.0) mmol/L Calcium 9.3 (8.4-10.2) mg/dL Total Bilirubin 0.3 (0.2-1.3) mg/dL AST 23 (14-36) U/L ALT 21 (6-35) U/L Alkaline Phosphatase 78 (38-126) U/L Total Protein 7.7 (6.3-8.2) g/dL Albumin 4.7 (3.5-5.1) g/dL Urine Color Yellow (Yellow) Urine Appearance Clear (Clear) Urine pH 5.5 (5.0-8.0) Ur Specific Rice >= 1.030 H (1.010-1.020) Urine Protein Negative (Negative) Urine Glucose (UA) Negative (Negative) Urine Ketones Negative (Negative) Ur Blood (Man) Trace-intact H (Negative) Urine Nitrate Negative (Negative) Urine Bilirubin Negative (Negative) Urine Urobilinogen 0.2 (0.2-1.0) mg/dL Leukocyte Esterase Rfl Negative (Negative) EMILIA/UL Urine Test Negative Imaging Data Radiologist's impression: ITS Impressions Hand X-Ray 10/19/25 16:07 Impression: No acute fracture or malalignment. Discharge Plan Discharge Clinical Impression: Cellulitis Qualifiers: Site of cellulitis: other site Qualified Code(s): L03.818 - Cellulitis of other sites Patient Disposition: Home Condition: Stable Instructions: Antibiotic Form, Cellulitis (ED) Additional Instructions: Monitor for worsening infection Patient Language: Lao Prescriptions: New amoxicillin-pot clavulanate 875-125 mg tablet 1 tablet PO Q12H Qty: 14 0RF No Action hydrocodone-acetaminophen 5-325 mg tablet 1 tablet PO Q4H PRN (Reason: pain) Qty: 10 0RF Follow-up/Referrals: UNKNOWN,DOCTOR [Non-Staff] Time of Disposition: 16:52
[2025-10-19 16:04] LABS: Hematocrit 42.4 % (35.0-49.0); Hemoglobin 13.8 g/dL (12.0-15.0); Immature Granulocyte Percent A 0.8 % (0.0-0.0); Lymphocytes Absolute Auto 1.59 K/mm3 (1.10-4.50); Mean Corpuscular HGB Conc 32.5 g/dL (32-36); Mean Corpuscular Hemoglobin 29.1 pg (27.0-31.0); Mean Corpuscular Volume 89.5 fL (78.0-102.0); Nucleated Red Blood Cells Absolute Auto 0.00 K/mm3 (0.00-0.00); Nucleated Red Blood Cells Perc 0.0 % (0-0.0); Platelet Count Result 326 K/mm3 (150-420); Red Blood Count 4.74 M/mm3 (4.20-5.40); White Blood Count 7.5 K/mm3 (4.8-10.8)
--- OUTSIDE RECORDS SUMMARY | 2025-10-19 16:07 | XMS_ITS | Encounter Summary ---
Author Organization [facility] Address [address] [place] [id number] Care Team Providers Care Abstracter Name Role Phone Fermín Torres MD Primary Care Provider [phone] Encounter Details Date Type Department Care Team (Late st Contact Info) Description 04/13/2019 Abstract SFL CONVERSION [address] [place] [address] , Generic Conversion, Social History Tobacco Use Types Packs/Day Years Used Date Smoking Tobacco: Never Assessed Comments Unknown Sex and Gender Information Value Date Recorded Sex Assigned at Female 05/12/2024 6:21 AM CDT Legal Sex Female 5:59 PM MUMPS DEVELOPER Gender Identity Female 05/12/2024 6:21 AM CDT Sexual Orientation Not on file documented as of this encounter Plan of Treatment Not on file documented as of this encounter Visit Diagnoses Not on filedocumented in this encounter Care Teams Abstracter Relationship Specialty Start Date End Date Fermín Torres MD [address] [place] [id number] PCP - General FAMILY PRACTICE 05/12/24 documented as of this encounter
--- OUTSIDE RECORDS SUMMARY | 2025-10-19 16:07 | XMS_ITS | Clinical Summary ---
Author Organization [facility] Address [address] [place] [address] Care Team Providers Care French Edge Operator Name Role Phone Fermín Torres MD Primary Care Provider [phone] Allergies No known active allergies Medications No [...] from your doctor or pharmacy? Never 05/12/[address] [facility] Utilities Answer Date Recorded In the past 12 months has [facility] [employer], gas, oil, or water [employer] threatened to shut off services in your [...] often do you attend chur ch or jewish services? Never 05/12/2024 Do you belong to any clubs o r organizations such as yazidi groups, unions, fraternal or athletic groups, or [...] and heating? Not hard at all 05/12/2024 [facility] - Occupational Stress [...] any time in the past 12 m [facility], were you homeless or living in a assisted (including now)? 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
[2025-10-19] MEDS: TETANUS,DIPHTHERIA,AC PERTUSSIS ADULT 0.5 ML (ADACEL) IM (16:08)
--- OUTSIDE RECORDS SUMMARY | 2025-10-19 16:08 | XMS_ITS | Clinical Summary ---
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 Overview (09/18/2023): Matern care for oth or susp poor fetl grth, third tri, unsp;Recorded Elsewhere: No Location: [facility] Source: EHR Chronic: N Practice ID: [id number] [...] Overview (09/18/2023): mood disturbance;Recorded Elsewhere: No Location: [facility] Source: EHR Chronic: N Practice ID: [id number] Billable Time: 02:30:00 PM Abnormal lochia 07/02/2018 11/09/2023 Overview (09/18/2023): Encounter for routine follow-up;Recorded Elsewhere: No Location: [facility] Source: EHR Chronic: N Practice ID: [id number] Billable Time: 02:30:00 PM Term delivered 04/06/201802/2024 Overview (09/18/2023): Encounter for full-term uncomplicated delivery;Practice ID: [id number] Secondary amenorrhea 08/30/2017 024 Overview (09/18/2023): Secondary amenorrhea;Recorded Elsewhere: No Location: [facility] Source: EHR Chronic: N Practice ID: [id number] [...] attack Father Lung cancer Maternal Grandfather COD Rhwq-Ypxjo-Gifqvas disease Mother Breast cancer Mother's Sister Hypertension [...] 0.6 oz pur e alcohol) beer/vodka weekly [facility] Utilities Answer Date Recorded In the past 12 months has e [employer], gas, oil, or water [employer] threatened to shut off services in your [...] often do you attend chur ch or faith services? Never 05/15/2024 Do you belong to any clubs o r organizations such as mormonism groups, unions, fraternal or athletic groups, or [...] Date Recorded PHQ-2 Total Score 0 05/15/2024 [facility] - [facility]ational Stress Questionnaire Answer Date Recorded [...] things needed for daily living? No 05/15/2024 [place] Depression Scale Answer Date Recorded [place] Depression Scale Total 23 05/28/2024 The thought [...] were you homeless or living in a longterm (including now)? No 05/15/2024 Personal Safety Answer Date Recorded Have you ever been in or are you currently in a harmful physical or emotional relationship or is someone making you feel afraid or unsafe? Denies 05/17/2024 Comments No Sex and Gender Information Value Date Recorded Sex Assigned at Not on file Legal Sex Female 1:41 AM WHARF TENDER HELPER Gender Identity Female 03/03/2024 2:40 PM CDT [...] HEPATITIS C ANTIBODY Routine 11/09/2023 2:33 PM WHARF TENDER HELPER 13 weeks gestation of THINPREP TIS PAP REFLEX HPV MRNA E6/E7, CHLAMYDIA/N.GONORRH OEAE Routine 10/11/2016 1:49 PM WHARF TENDER HELPER from Last 3 Months or Most Recently Relevant to Health Maintenance Results * Hepatitis C antibody Blood (11/09/2023 2:33 PM WHARF TENDER HELPER) Hep C Ab Nonreactive Nonreactive REGGIE REYNOSO [...] revised on 2020. Blood 11/09/2023 2:33 PM WHARF TENDER HELPER 11/09/2023 9:47 PM WHARF TENDER HELPER Brunilda Bustillos NP LAB MICROBIOLOGY - GENERAL ORDER DANETTE Final Result Performing Organization Address City/[facility] Co de Phone Number REGGIE [phone] Jagdeep Mcnair Department [place] [address] * THINPREP TIS PAP REFLEX HPV mRNA E6/E7, CHLAMYDIA/N.GONORRHOEAE (10/11/2016 1:49 PM WHARF TENDER HELPER) SOURCE: SEE NOTE [facility] HISTORICAL RESULTS Comment:Cervix, [...] has been evaluated with computer assisted technology. Cattle [employer] SEE NOTE [facility] HISTORICAL RESULTS Comment: JOSE, CT(ASCP) CT screening location: [place] [address] [place] [address] Test performed at [address] [id number] Director: MARIELA LU MD 10/11/2016 1:49 PM WHARF TENDER HELPER us Fadumo Lopez MD LAB PATHOLOGY ORDER DANETTE Final Result Performing Organization Address [facility] Co de Phone Number [facility] HISTORICAL RESULTS from Last 3 Months or Most Recently Relevant to Health Maintenance Insurance [facility] Advance Directives For more information, please contact: [phone] * Full Code (Latest Code Status on File) Date Activated Date Inactivated Comments 05/15/2024 1:58 AM 05/18/2024 2:30 AM * Full Code Date Activated Date Inactivated Comments 05/14/2024 10:57 AM 05/15/2024 1:58 AM Full CPR in case of cardiopulmonary arrest Care Teams Tellers Supervisor Relationship Specialty Start Date End Date Tomas Amaya MD [address] [place] [address] PCP - General Family Medicine 04/20/22
[2025-10-19 16:16] LABS: Alanine Aminotransferase 21 U/L (6-35); Albumin Level 4.7 g/dL (3.5-5.1); Alkaline Phosphatase 78 U/L (38-126); Anion Gap 9 mmol/L (4-12); Aspartate Amino Transferase 23 U/L (14-36); Bilirubin,Total 0.3 mg/dL (0.2-1.3); Blood Urea Nitrogen 11 mg/dL (7-17); Calcium 9.3 mg/dL (8.4-10.2); Carbon Dioxide 26 mmol/L (22-30); Chloride 103 mmol/L (98-107); Estimated CRCL calculation 94 ml/min; Estimated Glomerular Filt Rate > 60; Glucose 118 mg/dL (65-110); Osmolality Calculated 286 mOsm/kg (285-295); Potassium 3.8 mmol/L (3.4-5.0); Sodium 138 mmol/L (137-145); Total Protein 7.7 g/dL (6.3-8.2)
[2025-10-19 16:21] LABS: Add Urine Microscopic? NO; Appearance Urine Clear (Clear); Glucose Urine UA Negative (Negative); Leukocyte Esterase Ur Negative LEU/UL (Negative); Nitrate Urine Negative (Negative); Specific Grav Ur >= 1.030 (1.010-1.020)
[2025-10-19 16:26] LABS: Pregnancy On Board Control Positive
[2025-10-19 17:05] VITALS: BP 106/64; PULSE 82; RESP 16; TEMP 36.6; O2SAT 100
== END 2025-10-19 17:08 | disposition home or self-care (01) ==
PROVIDERS: Emergency Provider Internal Medicine Critical Care Medicine; Referring Provider Internal Medicine
DX: L03.818 Cellulitis of other sites (principal); F17.210 Nicotine dependence, cigarettes, uncomplicated; Z23 Encounter for immunization
CPT/HCPCS: 36415; 73130; 80053; 81003; 81025; 83605; 85025; 90471; 90715; 99283; A9270